=== PATIENT | male | born 1970 ===

== ENCOUNTER 2020-02-19 09:32 | Outpatient (REF) | payer MEDICARE, MEDICAID, SELFPAY ==
[2020-02-19 10:21] LABS: Hemoglobin 15.7 g/dl (14.0-18.0); Mean Corpuscular HGB Conc 32.7 g/dl (31.0-36.0); Mean Corpuscular Hemoglobin 30.9 pg (27.0-33.0); Mean Corpuscular Volume 94.5 fL (80-98); Mean Platelet Volume 9.4 fL (9.4-12.4); Platelet Count 285 X10*3/uL (160-400); Red Blood Count 5.08 X10*6/uL (4.60-5.80); Red Cell Distribution Width 12.6 % (11.0-16.0); White Blood Count 7.7 X10*3/uL (4.8-10.8)
[2020-02-19 10:56] LABS: Alanine Aminotransferase 21 U/L (0-40); Albumin Level 4.5 g/dL (3.5-5.0); Alkaline Phosphatase 62 U/L (39-117); Anion Gap 12 (12-20); Aspartate Amino Transferase 16 U/L (5-37); Bilirubin Direct 0.2 mg/dL (0.0-0.5); Bilirubin Total 0.4 mg/dL (0.0-1.0); Blood Urea Nitrogen 13 mg/dL (9-16); Calcium 8.5 mg/dL (8.4-10.2); Carbon Dioxide 26 mmol/L (22-29); Chloride 105 mmol/L (96-108); Cholesterol 174 mg/dL; Estimated Glomerular Filt Rate > 60; Glucose Random 107 mg/dL (60-115); HDL Cholesterol 39 mg/dL; LDL Cholesterol Calculated 118 mg/dl; Potassium 4.4 mmol/l (3.3-5.1); Sodium 139 mmol/L (135-145); Total Protein 7.4 g/dL (6.5-8.0); Triglycerides 87 mg/dL
[2020-02-19 11:02] LABS: Thyroid Stimulating Hormone 1.52 mIU/mL (0.32-4.0)
== END 2020-02-19 09:33 | disposition home or self-care (01) ==
LOC: HO.LAB 09:32
PROVIDERS: PCP Internal Medicine; Visit Provider Internal Medicine
DX: F32.9 Major depressive disorder, single episode, unspecified (principal)
CPT/HCPCS: 36415; 80048; 80061; 80076; 84443; 85027

== ENCOUNTER 2020-06-12 09:09 | Outpatient (REF) | payer MEDICARE, SELFPAY ==
[2020-06-12 10:04] LABS: Hematocrit 44.9 % (42-52); Hemoglobin 14.9 g/dl (14.0-18.0); Mean Corpuscular HGB Conc 33.2 g/dl (31.0-36.0); Mean Corpuscular Hemoglobin 30.7 pg (27.0-33.0); Mean Corpuscular Volume 92.6 fL (80-98); Mean Platelet Volume 9.6 fL (9.4-12.4); Platelet Count 249 X10*3/uL (160-400); Red Blood Count 4.85 X10*6/uL (4.60-5.80); White Blood Count 7.8 X10*3/uL (4.8-10.8)
[2020-06-12 10:06] LABS: Glucose Urine UA NEG (NEG); Leukocyte Esterase Urine NEG (NEG); Nitrite Urine NEG (NEG); Specific Gravity - Urine >= 1.030 (1.005-1.025); Urine Blood NEG (NEG); Urine Ketones NEG (NEG); Urine Protein NEG (NEG-TRACE)
[2020-06-12 10:08] LABS: Appearance Urine CLEAR; Color Urine YELLOW
[2020-06-12 10:19] LABS: Estimated Average Glucose 103 mg/dL; Hemoglobin A1c % 5.2 %
[2020-06-12 10:53] LABS: Prostate Specific Antigen Scr 2.38 ng/mL (<0.05-4.0)
[2020-06-12 10:54] LABS: Alanine Aminotransferase 24 U/L (0-40); Albumin Level 4.4 g/dL (3.5-5.0); Alkaline Phosphatase 68 U/L (39-117); Anion Gap 13 (12-20); Aspartate Amino Transferase 17 U/L (5-37); Bilirubin Direct 0.3 mg/dL (0.0-0.5); Blood Urea Nitrogen 16 mg/dL (9-16); Calcium 8.9 mg/dL (8.4-10.2); Carbon Dioxide 26 mmol/L (22-29); Chloride 105 mmol/L (96-108); Cholesterol 180 mg/dL; Estimated Glomerular Filt Rate > 60; Glucose Random 100 mg/dL (60-115); HDL Cholesterol 35 mg/dL; LDL Cholesterol Calculated 127 mg/dl; Potassium 3.9 mmol/L (3.3-5.1); Sodium 140 mmol/L (135-145); Total Protein 7.2 g/dL (6.5-8.0); Triglycerides 94 mg/dL
[2020-06-18 14:27] LABS: Vitamin D 25-OH, D2 <4 ng/mL; Vitamin D 25-OH, D3 26 ng/mL; Vitamin D 25-OH, Total 26 ng/mL (30-100)
== END 2020-06-12 09:10 | disposition home or self-care (01) ==
LOC: HO.LAB 09:09
PROVIDERS: PCP Internal Medicine; Visit Provider Internal Medicine
DX: R35.8 Other polyuria (principal); Z12.5 Encounter for screening for malignant neoplasm of prostate
CPT/HCPCS: 36415; 80048; 80061; 80076; 81003; 82306; 83036; 84153; 85027

== ENCOUNTER → 2021-01-07 10:15 | Outpatient (BNVA) | payer OTHER, SELFPAY | PROVIDERS: Visit Provider Urology | DX: R39.15 Urgency of urination (principal); R35.1 Nocturia; N32.0 Bladder-neck obstruction | CPT/HCPCS: 99202 ==

== ENCOUNTER → 2021-03-03 12:30 | Outpatient (BNVA) | payer OTHER, SELFPAY | PROVIDERS: Visit Provider Urology | DX: N32.0 Bladder-neck obstruction (principal); R39.15 Urgency of urination; R35.1 Nocturia | CPT/HCPCS: 52000; Q3014 ==

== ENCOUNTER 2021-06-17 08:47 | Outpatient (REF) | payer OTHER, SELFPAY ==
[2021-06-17 09:26] LABS: Hematocrit 43.6 % (42.0-52.0); Hemoglobin 14.5 g/dl (14.0-18.0); Mean Corpuscular HGB Conc 33.3 g/dl (31.0-36.0); Mean Corpuscular Hemoglobin 30.7 pg (27.0-33.0); Mean Corpuscular Volume 92.2 fL (80.0-98.0); Mean Platelet Volume 9.4 fL (9.4-12.4); Platelet Count 243 X10*3/uL (160-400); Red Blood Count 4.73 X10*6/uL (4.60-5.80); Red Cell Distribution Width 13.1 % (11.0-16.0); White Blood Count 7.4 X10*3/uL (4.8-10.8)
[2021-06-17 10:19] LABS: Alanine Aminotransferase 24 U/L (0-40); Albumin Level 4.4 g/dL (3.5-5.0); Alkaline Phosphatase 60 U/L (39-117); Anion Gap 12 (12-20); Aspartate Amino Transferase 18 U/L (5-37); Bilirubin Direct 0.4 mg/dL (0.0-0.5); Bilirubin Total 1.3 mg/dL (0.0-1.0); Blood Urea Nitrogen 14 mg/dL (9-16); Calcium 9.6 mg/dL (8.4-10.2); Carbon Dioxide 26 mmol/L (22-29); Chloride 105 mmol/L (96-108); Cholesterol 193 mg/dL; Estimated Glomerular Filt Rate > 60; Glucose Random 110 mg/dL (60-115); HDL Cholesterol 38 mg/dL; LDL Cholesterol Calculated 130 mg/dl; Potassium 4.2 mmol/L (3.3-5.1); Sodium 139 mmol/L (135-145); Total Protein 7.2 g/dL (6.5-8.0); Triglycerides 127 mg/dL
[2021-06-17 10:43] LABS: Thyroid Stimulating Hormone 2.04 uIU/mL (0.32-4.0)
== END 2021-06-17 08:48 | disposition home or self-care (01) ==
LOC: HO.LAB 08:47
PROVIDERS: PCP Internal Medicine; Visit Provider Internal Medicine
DX: M19.90 Unspecified osteoarthritis, unspecified site (principal); N32.0 Bladder-neck obstruction
CPT/HCPCS: 36415; 80048; 80061; 80076; 84443; 85027

== ENCOUNTER → 2021-07-02 12:44 | Outpatient (BNVA) | payer OTHER, SELFPAY | PROVIDERS: Visit Provider Urology | DX: N32.0 Bladder-neck obstruction (principal); R39.15 Urgency of urination | CPT/HCPCS: 51798; 99212 ==

== ENCOUNTER → 2021-12-22 13:38 | Outpatient (BNVA) | payer OTHER, SELFPAY | PROVIDERS: PCP Internal Medicine; Visit Provider Internal Medicine | DX: Z01.818 Encounter for other preprocedural examination (principal) | CPT/HCPCS: 99202 ==

== ENCOUNTER 2021-12-23 11:05 | Outpatient (REF) | payer OTHER, SELFPAY ==
[2021-12-23 11:51] LABS: Appearance Urine Clear; Color Urine Yellow; Glucose Urine UA Negative (Negative); Leukocyte Esterase Urine Trace (Negative); Nitrite Urine Negative (Negative); PH 5.5 (5.0-9.0); Urine Blood Negative (Negative); Urine Ketones Negative (Negative); Urine Protein Negative (Neg-Trace)
[2021-12-23 11:54] LABS: Bacteria Urine None Seen (None Seen); Squamous Epithelial Cell Urine 0-2 /HPF (0-2)
[2021-12-23 11:56] LABS: Hematocrit 42.4 % (42.0-52.0); Hemoglobin 14.3 g/dl (14.0-18.0); Mean Corpuscular HGB Conc 33.7 g/dl (31.0-36.0); Mean Corpuscular Hemoglobin 31.2 pg (27.0-33.0); Mean Corpuscular Volume 92.4 fL (80.0-98.0); Mean Platelet Volume 9.5 fL (9.4-12.4); Platelet Count 214 X10*3/uL (160-400); Red Blood Count 4.59 X10*6/uL (4.60-5.80); Red Cell Distribution Width 13.2 % (11.0-16.0); White Blood Count 6.7 X10*3/uL (4.8-10.8)
[2021-12-23 12:35] LABS: Alanine Aminotransferase 19 U/L (0-40); Albumin Level 4.2 g/dL (3.5-5.0); Alkaline Phosphatase 56 U/L (39-117); Anion Gap 14 (12-20); Aspartate Amino Transferase 15 U/L (5-37); Bilirubin Direct 0.2 mg/dL (0.0-0.5); Bilirubin Total 0.6 mg/dL (0.0-1.0); Blood Urea Nitrogen 15 mg/dL (9-16); Carbon Dioxide 24 mmol/L (22-29); Chloride 105 mmol/L (96-108); Cholesterol 182 mg/dL; Estimated Glomerular Filt Rate > 60; Glucose Random 104 mg/dL (60-115); HDL Cholesterol 39 mg/dL; LDL Cholesterol Calculated 129 mg/dl; Sodium 139 mmol/L (135-145); Total Protein 6.8 g/dL (6.5-8.0); Triglycerides 74 mg/dL
[2021-12-23 12:45] LABS: Thyroid Stimulating Hormone 1.33 uIU/mL (0.32-4.0)
== END 2021-12-23 11:06 | disposition home or self-care (01) ==
LOC: HO.LAB 11:05
PROVIDERS: PCP Internal Medicine; Visit Provider Urology
DX: R30.0 Dysuria (principal)
CPT/HCPCS: 36415; 80048; 80061; 80076; 81001; 84443; 85027

== ENCOUNTER 2021-12-27 12:02 | Outpatient (REF) | payer OTHER, SELFPAY ==
[2021-12-27 13:34] LABS: Prostate Specific Antigen 1.92 ng/mL (<0.05-4.0)
== END 2021-12-27 12:03 | disposition home or self-care (01) ==
LOC: HO.LAB 12:02
PROVIDERS: PCP Internal Medicine; Visit Provider Urology
DX: Z12.5 Encounter for screening for malignant neoplasm of prostate (principal); N32.0 Bladder-neck obstruction
CPT/HCPCS: 36415; 84153

== ENCOUNTER → 2021-12-31 12:59 | Outpatient (BNVA) | payer OTHER, SELFPAY | PROVIDERS: PCP Internal Medicine; Visit Provider Urology | DX: N40.1 Benign prostatic hyperplasia with lower urinary tract symptoms (principal); N13.8 Other obstructive and reflux uropathy; R39.15 Urgency of urination; R35.1 Nocturia; R35.0 Frequency of micturition; Z79.899 Other long term (current) drug therapy | CPT/HCPCS: Q3014 ==

== ENCOUNTER 2022-03-31 09:40 | Outpatient (REF) | payer OTHER, SELFPAY ==
[2022-03-31 12:23] LABS: Appearance Urine Clear; Color Urine Yellow; Glucose Urine UA Negative (Negative); Leukocyte Esterase Urine Negative (Negative); Nitrite Urine Negative (Negative); PH 5.5 (5.0-9.0); Urine Blood Negative (Negative); Urine Ketones Negative (Negative); Urine Protein Negative (Neg-Trace)
[2022-03-31 13:14] LABS: Prostate Specific Antigen 4.45 ng/mL (<0.05-4.0)
== END 2022-03-31 09:41 | disposition home or self-care (01) ==
LOC: HO.LAB 09:40
PROVIDERS: Urology; PCP Internal Medicine; Visit Provider Internal Medicine
DX: Z12.5 Encounter for screening for malignant neoplasm of prostate (principal); N32.0 Bladder-neck obstruction; R30.0 Dysuria
CPT/HCPCS: 36415; 81003; 84153

== ENCOUNTER 2022-05-04 09:21 | Outpatient (REF) | payer OTHER, SELFPAY ==
[2022-05-04 11:07] LABS: Hematocrit 45.8 % (42.0-52.0); Hemoglobin 15.3 g/dl (14.0-18.0); Mean Corpuscular HGB Conc 33.4 g/dl (31.0-36.0); Mean Corpuscular Hemoglobin 30.6 pg (27.0-33.0); Mean Corpuscular Volume 91.6 fL (80.0-98.0); Mean Platelet Volume 9.4 fL (9.4-12.4); Platelet Count 235 X10*3/uL (160-400); Red Cell Distribution Width 12.9 % (11.0-16.0); White Blood Count 7.8 X10*3/uL (4.8-10.8)
[2022-05-04 11:57] LABS: Alanine Aminotransferase 19 U/L (0-40); Albumin Level 4.3 g/dL (3.5-5.0); Alkaline Phosphatase 59 U/L (39-117); Anion Gap 10 (12-20); Aspartate Amino Transferase 15 U/L (5-37); Bilirubin Direct 0.2 mg/dL (0.0-0.5); Bilirubin Total 0.9 mg/dL (0.0-1.0); Blood Urea Nitrogen 16 mg/dL (9-16); Calcium 9.2 mg/dL (8.4-10.2); Carbon Dioxide 26 mmol/L (22-29); Chloride 106 mmol/L (96-108); Cholesterol 184 mg/dL; Estimated Glomerular Filt Rate > 60; Glucose Random 95 mg/dL (60-115); HDL Cholesterol 34 mg/dL; LDL Cholesterol Calculated 122 mg/dl; Potassium 3.9 mmol/L (3.3-5.1); Sodium 138 mmol/L (135-145); Total Protein 6.9 g/dL (6.5-8.0); Triglycerides 144 mg/dL
== END 2022-05-04 09:22 | disposition home or self-care (01) ==
LOC: HO.LAB 09:21
PROVIDERS: PCP Internal Medicine; Visit Provider Internal Medicine
DX: M19.90 Unspecified osteoarthritis, unspecified site (principal); F32.4 Major depressive disorder, single episode, in partial remission
CPT/HCPCS: 36415; 80048; 80061; 80076; 84443; 85027

== ENCOUNTER 2022-06-02 08:52 | Day surgery (SDC) | payer OTHER, SELFPAY ==
[2022-05-30 10:08] VITALS: BMI 28.3
--- NOTE | 2022-06-02 07:50 | PC.NURSE ---
pt called and cancelled
[2022-06-02 08:57] VITALS: BP 110/62; PULSE 94; RESP 19; TEMP 37; O2SAT 98
--- NOTE | 2022-06-02 09:04 | PC.NURSE ---
no meds taken today
[2022-06-02] MEDS: Lactated Ringers 1,000 ML 50 ML IVCONT (09:13)
--- NOTE | 2022-06-02 09:14 | MHC.SHP ---
Pre-Procedural Eval Section A Date of Service: 06/02/22 Section B Chief Complaint: screening Details of Present Illness: PMH Generalized anxiety disorder GERD (gastroesophageal reflux disease) Insomnia Tobacco use disorder Surgical History History of appendectomy History of cholecystectomy Relevant Family History (Specify if Yes): No Relevant Social History: None Present Medications: see Short Stay Collaborative assessment Medical History: Significant History (As above) History of Previous Operations: Relevant previous surgery/procedure and date(s) (As above) Allergies: Allergies Allergy/AdvReac Type Severity Reaction Status Date / Time aspirin [ASPIRIN] Allergy Intermediate Facial Verified 05/30/22 10:05 Swelling/Hives/flushing Penicillins [PENICILLINS] Allergy Intermediate syncope Verified 05/30/22 10:05 Review of Systems Review of Systems Comment: 10 point ROS negative Exam Exam Comment: Gen appear: No acute distress HEENT: no icterus Chest: No overt resp distress Abd: soft, nontender, nondistended Psych: Stable affect, answering questions appropriately Neuro: A/Ox3 noted to move all extremities spontaneously Ext: no peripheral edema Plan Diagnosis/Plan: Unchanged I have reviewed the history and physical and performed a pertinent physical examination on my patient. No changes have occurred unless specified. Time Spent With Patient Time: Total time managing care of this patient today ____ minutes.
--- NOTE | 2022-06-02 10:04 | HO.ANESPROP2 ---
HPI - Anesthesia Eval Consult details Narrative: 52 yr old for screening colon PMFSH Active Problems Active Problems: All Active Problems (Updated 06/02/22 @ 07:48 by Ivonne Herrmann, RN) Annual physical exam (Acute) Bladder outlet obstruction (Acute) Nocturia more than twice per night (Acute) Urinary urgency (Acute) Trichomoniasis, urogenital (Acute) Flu vaccine need (Acute) Dysuria (Acute) Osteoarthritis (Acute) Major depression in partial remission (Acute) Tobacco use disorder (Acute) GERD (gastroesophageal reflux disease) (Acute) Generalized anxiety disorder (Acute) Past Medical History Medical History (Updated 06/02/22 @ 07:48 by Ivonne Herrmann, RN) Abdominal aortic aneurysm (AAA) BPH (benign prostatic hyperplasia) CAD (coronary artery disease) Cough Dyspnea Edema Erectile dysfunction Former cigarette smoker Generalized anxiety disorder GERD (gastroesophageal reflux disease) Hemorrhoid HTN (hypertension) Hx of vertigo Hyperlipidemia Insomnia Myocardial infarct, old Pulmonary nodule Tobacco use disorder Family History Family History Mother Cancer Father Prostate cancer Heart defect Other Mental health disorder Family history of problems with anesthesia: No Surgical History Surgical History (Updated 05/30/22 @ 10:07 by Camille Araujo RN) History of appendectomy History of cholecystectomy History of Problems with Anesthesia: No Social History Social History Housing: Apartment Alcohol intake: current Alcohol intake frequency: does not drink Patient Tobacco Use Status: Former Tobacco user Quit Date: 2000 Tobacco use type: Cigarette e-Cigarette/Vaping Use: Never Used Second Hand Smoke Exposure: No Are you DNR?: No Advance Directives: No Advance Directives Information Provided: Yes Recently lost weight without trying: No Nutrition Risks: No Nutritional Risk service: No Current occupational status: disabled Cognitive needs: No Hearing needs: No Vision needs: No Meds Allergies Allergy/AdvReac Type Severity Reaction Status Date / Time aspirin [ASPIRIN] Allergy Intermediate Facial Verified 05/30/22 10:05 Swelling/Hives/flushing Penicillins [PENICILLINS] Allergy Intermediate syncope Verified 05/30/22 10:05 Active Medications: Current Medications Lactated Ringer's (Lr) 1,000 mls @ 50 mls/hr IVCONT .Q20H CATHERINE Last Admin: 06/02/22 09:13 Dose: 50 mls/hr Home Medications Medication Instructions Recorded Confirmed Last Taken Type omeprazole 20 mg capsule,delayed 20 mg PO BID 03/31/20 05/30/22 Unknown History release mirtazapine 15 mg tablet 15 mg PO BEDTIME 01/07/21 05/30/22 Unknown History doxepin 25 mg capsule 25 - 50 mg PO BEDTIME 03/03/21 05/30/22 Unknown History hydroxyzine HCl 50 mg tablet 50 mg PO TID 03/03/21 05/30/22 Unknown History albuterol sulfate 90 mcg/actuation 2 puff inhalation Q4H PRN 05/30/22 05/30/22 Unknown History aerosol inhaler (Ventolin HFA) Shortness Of Breath Exam Exam Date and Time: June 02, 2022 1004 Height,Weight and Vital Signs: Height 5 ft 5 in Weight 77.111 kg Last Vital Signs Temp 98.6 F 06/02/22 08:57 Pulse 94 06/02/22 08:57 Resp 19 06/02/22 08:57 BP 110/62 06/02/22 08:57 Pulse Ox 98 06/02/22 08:57 O2 Del Method 06/02/22 08:57 Airway Mallampati Class: II TM Dist: >3cm Neck ROM: Full Heart: rrr Lungs: cta Assessment and Plan Assessment Anesthesia Assessment: Anesthesia Plan Discussed and Chart Reviewed Final Anesthetic Review Family History of Problems with Anesthesia: No History of Problems with Anesthesia: No NPO: Yes ASA Class: II Final Preanesthetic Review: No Changes in Pt Med Stat, Meds/Allgs Chart Reviewed, Consent Obtained/Reviewed and Anes Risks/Benef Reviewed Patient Risk: Low Procedure Risk: Low Anesthetic Plan Anesthetic Plan: MAC: Disposition: Standard PACU
--- NOTE | 2022-06-02 10:45 | P.OP_ITS ---
Operative Note Operative Note Date of Service: 06/02/22 Narrative: Procedure: Colonoscopy Indication: Screening Endoscopist: Roxane Talley MD Anesthesia Provider: Dr Jesica Eller Anesthesia type: MAC Instrument: Olympus [id number]-[id number] Consent: Indication, risks vs benefits, and alternatives were discussed with the patient who gave written informed consent to proceed. EKG, pulse, pulse oximetry and blood pressure were monitored throughout the procedure. Please see anesthesia flowsheet. Procedure: The patient was brought to the procedure room and placed in the left lateral decubitus position. IV medications were administered by the anesthesia provider in attendance. A digital rectal exam was performed which was normal. The colonoscope was then inserted through the anus and advanced through the colon to the cecum at 75 cm,and terminal ileum. Mucosa was carefully examined under high definition white light as the instrument was slowly withdrawn in a retrograde panoramic fashion. Retroflexion was performed in rectum. The procedure was not difficult. There were no immediate obvious complications. The quality of the prep was BBPS: 2+2+2 = adequate Withdrawal time 15 minutes. Limitations: No limitations. Findings: Mucosa: Normal to cecum and terminal ileum. Protruding lesions: * 1 semi-pedunculated polyp of size 10 mm in ascending colon. Hot snare polypectomy was performed. The polyp was completely removed and retrieved. Mild oozing was noted at the polypectomy site which was successfully treated with soft coag thermal therapy using the tip of the hot snare. * Medium internal hemorrhoids without stigmata of recent bleeding. Impression: 1. Normal colon and terminal ileum mucosa 2. Total of 1 polyp removed from cecum. 3. Internal hemorrhoids Recommendations: - Follow path results. - Repeat colonoscopy in 3 years if polyp is an adenoma due to size. Findings were reviewed with the patient.
[2022-06-02 10:49] VITALS: BP 80/44; PULSE 52; RESP 16; TEMP 36.2; O2SAT 97
[2022-06-02 10:53] VITALS: BP 85/49; PULSE 50
--- NOTE | 2022-06-02 10:56 | HO.ANESPROP2 ---
HPI - Anesthesia Eval Consult details Narrative: for screening [facility] Active Problems Active Problems: All Active Problems (Updated 06/02/22 @ 07:48 by Ivonne Herrmann, RN) Annual physical exam (Acute) Bladder outlet obstruction (Acute) Nocturia more than twice per night (Acute) Urinary urgency (Acute) Trichomoniasis, urogenital (Acute) Flu vaccine need (Acute) Dysuria (Acute) Osteoarthritis (Acute) Major depression in partial remission (Acute) Tobacco use disorder (Acute) GERD (gastroesophageal reflux disease) (Acute) Generalized anxiety disorder (Acute) Past Medical History Medical History (Updated 06/02/22 @ 07:48 by Ivonne Herrmann, RN) Abdominal aortic aneurysm (AAA) BPH (benign prostatic hyperplasia) CAD (coronary artery disease) Cough Dyspnea Edema Erectile dysfunction Former cigarette smoker Generalized anxiety disorder GERD (gastroesophageal reflux disease) Hemorrhoid HTN (hypertension) Hx of vertigo Hyperlipidemia Insomnia Myocardial infarct, old Pulmonary nodule Tobacco use disorder Family History Family History Mother Cancer Father Prostate cancer Heart defect Other Mental health disorder Family history of problems with anesthesia: No Surgical History Surgical History (Updated 05/30/22 @ 10:07 by Camille Araujo RN) History of appendectomy History of cholecystectomy History of Problems with Anesthesia: No Social History Social History Housing: Apartment Alcohol intake: current Alcohol intake frequency: does not drink Patient Tobacco Use Status: Former Tobacco user Quit Date: 2000 Tobacco use type: Cigarette e-Cigarette/Vaping Use: Never Used Second Hand Smoke Exposure: No Are you DNR?: No Advance Directives: No Advance Directives Information Provided: Yes Recently lost weight without trying: No Nutrition Risks: No Nutritional Risk service: No Current occupational status: disabled Cognitive needs: No Hearing needs: No Vision needs: No Meds Allergies Allergy/AdvReac Type Severity Reaction Status Date / Time aspirin [ASPIRIN] Allergy Intermediate Facial Verified 05/30/22 10:05 Swelling/Hives/flushing Penicillins [PENICILLINS] Allergy Intermediate syncope Verified 05/30/22 10:05 Active Medications: Current Medications Lactated Ringer's (Lr) 1,000 mls @ 50 mls/hr IVCONT .Q20H CATHERINE Last Admin: 06/02/22 09:13 Dose: 50 mls/hr Home Medications Medication Instructions Recorded Confirmed Last Taken Type omeprazole 20 mg capsule,delayed 20 mg PO BID 03/31/20 05/30/22 Unknown History release mirtazapine 15 mg tablet 15 mg PO BEDTIME 01/07/21 05/30/22 Unknown History doxepin 25 mg capsule 25 - 50 mg PO BEDTIME 03/03/21 05/30/22 Unknown History hydroxyzine HCl 50 mg tablet 50 mg PO TID 03/03/21 05/30/22 Unknown History albuterol sulfate 90 mcg/actuation 2 puff inhalation Q4H PRN 05/30/22 05/30/22 Unknown History aerosol inhaler (Ventolin HFA) Shortness Of Breath Exam Exam Date and Time: June 02, 2022 1056 Height,Weight and Vital Signs: Height 5 ft 5 in Weight 77.111 kg Last Vital Signs Temp 97.2 F 06/02/22 10:49 Pulse 50 06/02/22 10:53 Resp 16 06/02/22 10:49 BP 85/49 L 06/02/22 10:53 Pulse Ox 97 06/02/22 10:49 O2 Del Method 06/02/22 10:49 Airway Mallampati Class: II TM Dist: >3cm Neck ROM: Full Heart: rr Lungs: cta Assessment and Plan Final Anesthetic Review Family History of Problems with Anesthesia: No History of Problems with Anesthesia: No NPO: Yes ASA Class: II Final Preanesthetic Review: No Changes in Pt Med Stat, Meds/Allgs Chart Reviewed, Consent Obtained/Reviewed and Anes Risks/Benef Reviewed Patient Risk: Low Procedure Risk: Low Anesthetic Plan Anesthetic Plan: MAC: Disposition: Standard PACU
[2022-06-02 10:58] VITALS: BP 88/50; PULSE 45
[2022-06-02 11:04] VITALS: BP 99/68; PULSE 55; RESP 16; O2SAT 97
[2022-06-02 11:19] VITALS: BP 103/65; PULSE 52; RESP 18; TEMP 36.8; O2SAT 98
== END 2022-06-02 12:24 | disposition home or self-care (01) ==
PROVIDERS: PCP Internal Medicine; Visit Provider Internal Medicine
PROC: 0DJD8ZZ Inspection of Lower Intestinal Tract, Via Natural or Artificial Opening Endoscopic (ICD-10-PCS; CPT 45378; principal; 2022-06-02 10:20)
DX: Z12.11 Encounter for screening for malignant neoplasm of colon (principal); D12.2 Benign neoplasm of ascending colon; K64.8 Other hemorrhoids; K21.9 Gastro-esophageal reflux disease without esophagitis; G47.00 Insomnia, unspecified; F41.1 Generalized anxiety disorder; Z79.899 Other long term (current) drug therapy; Z88.0 Allergy status to penicillin; Z88.8 Allergy status to other drugs, medicaments and biological substances; Z87.891 Personal history of nicotine dependence; Z90.49 Acquired absence of other specified parts of digestive tract
CPT/HCPCS: 45385; 88305

== ENCOUNTER → 2022-06-15 10:39 | Outpatient (BNVA) | payer OTHER, SELFPAY | PROVIDERS: PCP Internal Medicine; Visit Provider Internal Medicine | DX: K63.5 Polyp of colon (principal); K64.9 Unspecified hemorrhoids | CPT/HCPCS: 99212 ==

== ENCOUNTER 2022-10-05 09:18 | Outpatient (REF) | payer OTHER, SELFPAY ==
[2022-10-05 11:35] LABS: Rheumatoid Factor < 13.0 IU/mL (<15.0)
[2022-10-07 13:54] LABS: Anti Nuclear Antibody Screen NEGATIVE (NEGATIVE)
== END 2022-10-05 09:19 | disposition home or self-care (01) ==
LOC: HO.LAB 09:18
PROVIDERS: PCP Nurse Practitioner Family; Visit Provider Nurse Practitioner Family
DX: M25.50 Pain in unspecified joint (principal)
CPT/HCPCS: 36415; 86038; 86431

== ENCOUNTER 2022-11-22 14:11 | Outpatient (AMB) | payer OTHER, SELFPAY ==
--- NOTE | 2022-11-22 14:18 | A.OFFVIS_ITS ---
Intake Vital Signs 11/22/22 14:19 Height 5 ft 5 in Weight 153 lb 3.54 oz BMI 25.5 BP 102/60 Blood Pressure Location Rt brachial Position Sitting Pulse 92 Pulse Source Pulse Oximeter Temp 98.1 F Temp Source Skin Pulse Oximetry (%) 96 Intake Visit Reasons: Joint Pain Intake Note: * New pt presents today for joint pain consult. * C/o pain in multiple areas. Enrollment Coordinator Required: No Accompanied by: Self / Same As Patient Allergies aspirin [ASPIRIN] Allergy (Intermediate, Verified 11/22/22 14:21) Facial Swelling/Hives/flushing Penicillins [PENICILLINS] Allergy (Intermediate, Verified 11/22/22 14:21) syncope Medication List - Last Reconciled 11/22/22 by Monica Merritt MD albuterol sulfate 90 mcg/actuation (Ventolin HFA) 2 puffs inhalation Q4H PRN cane As directed cholecalciferol (vitamin D3) (Vitamin D3) 25 mcg PO DAILY doxepin 25 - 50 mg PO BEDTIME escitalopram oxalate 20 mg PO DAILY finasteride 5 mg PO DAILY 90 days hydroxyzine HCl 50 mg PO TID lidocaine HCl-hydrocortison ac 3-0.5 % 1 appl [place] BEDTIME mirtazapine 15 mg PO BEDTIME omeprazole 20 mg PO BID Shower Chair As directed terazosin 5 mg PO BEDTIME 90 days tramadol 50 mg PO DAILY PRN HPI HPI Comments History of Present Illness Details If this is a 52-year-old male who presents for evaluation of diffuse pain. Patient stated that he has had back pain for more than 20 years during a work injury when he fell from height. For the last 2 3 years he has been getting intermittent abrupt pain in his wrists, shoulders, elbows. Denies any swollen joints. Patient states that he has difficulty falling asleep and takes a sleeping pill. Mentions that he has a cousin with severe arthritis. Has a niece with SLE. [facility] Medical History Abdominal aortic aneurysm (AAA) BPH (benign prostatic hyperplasia) CAD (coronary artery disease) Cough Dyspnea Edema Erectile dysfunction Former cigarette smoker Generalized anxiety disorder GERD (gastroesophageal reflux disease) Hemorrhoid HTN (hypertension) Hx of vertigo Hyperlipidemia Insomnia Myocardial infarct, old Pulmonary nodule Tobacco use disorder Surgical History History of appendectomy History of cholecystectomy Hx of colonoscopy Family History Mother Cancer Father Prostate cancer Heart defect Other Mental health disorder Social History Household Members: None Housing: Apartment Alcohol intake: current Alcohol intake frequency: does not drink Patient Tobacco Use Status: Former Tobacco user Quit Date: 2011 Tobacco use type: Cigarette e-Cigarette/Vaping Use: Never Used Second Hand Smoke Exposure: No service: No Current occupational status: disabled Cognitive needs: No Hearing needs: No Vision needs: No Review of Systems Const Reports fatigue GI Reports heartburn Reports difficulty urinating and Reports nocturia Musc Reports arthralgias Psych Reports anxiety and Reports depression Endo Reports fatigue Physical Exam Vital Signs: Last Vital Signs Temp 98.1 F 11/22/22 14:19 Pulse 92 11/22/22 14:19 BP 102/60 11/22/22 14:19 Pulse Ox 96 11/22/22 14:19 BMI result Body Mass Index 25.5 Const General: cooperative, healthy appearing and comfortable Nutritional Appearance: average body habitus Orientation/consciousness: patient oriented x3 Limitations: no limitations HEENT Head: Yes normocephalic and Yes atraumatic Mouth: moist mucous membranes Resp Effort & Inspection: normal respiratory effort and able to speak in complete sentences Auscultation: clear to auscultation bilaterally Cardio Rate: regular rate Rhythm: regular rhythm Neuro General: patient oriented x3 Extrem Other: Mild osteoarthritic changes of both hands with no active synovitis Multiple fibromyalgia tender points Assessment & Plan Assessment & Plan (1) Polyarthralgia: Code(s): M25.50 - Pain in unspecified joint Plan: This is a 60-year-old male who presents for evaluation of multiple joint pain. Recent labs showed negative TOM/RF. Will order anti CCP antibodies and check bilateral hand x-rays for full evaluation. Patient's pains however are likely a combination of fibromyalgia and osteoarthritis Orders: Orders Cyclic Citrullinated Peptide Today M25.50 - Pain in unspecified joint Complete Blood Count Auto Diff Today M25.50 - Pain in unspecified joint Comprehensive Met. Panel Today M25.50 - Pain in unspecified joint C Reactive Protein Today M25.50 - Pain in unspecified joint Erythrocyte Sedimentation Rate Today M25.50 - Pain in unspecified joint XR hand wrist LT Today M25.50 - Pain in unspecified joint XR hand wrist RT Today M25.50 - Pain in unspecified joint Medications: Changed From tramadol 50 mg PO ONCE 14 tabs 0RF To tramadol 50 mg PO DAILY PRN Coding Level of Care Code Est Pt Level 3 (30984) Diagnoses Polyarthralgia M25.50
[2022-11-22 14:19] VITALS: BP 102/60; PULSE 92; TEMP 36.7; O2SAT 96; BMI 25.5
== END 2022-11-22 14:56 | disposition home or self-care (01) ==
PROVIDERS: PCP Nurse Practitioner Family; Visit Provider Student in an Organized Health Care Education/Training Program
DX: M25.50 Pain in unspecified joint (principal)
CPT/HCPCS: 99213

== ENCOUNTER → 2022-11-22 14:11 | Outpatient (BNVA) | payer OTHER, SELFPAY | PROVIDERS: PCP Nurse Practitioner Family; Visit Provider Student in an Organized Health Care Education/Training Program | DX: M25.50 Pain in unspecified joint (principal) | CPT/HCPCS: 99212 ==

== ENCOUNTER 2023-01-18 08:38 | Outpatient (REF) | payer OTHER, SELFPAY ==
[2023-01-18 10:20] LABS: Prostate Specific Antigen Scr 1.05 ng/mL (<0.05-4.0)
== END 2023-01-18 08:39 | disposition home or self-care (01) ==
LOC: HO.LAB 08:38
PROVIDERS: PCP Internal Medicine; Visit Provider Urology
DX: N32.0 Bladder-neck obstruction (principal); I71.40 Abdominal aortic aneurysm, without rupture, unspecified; M19.90 Unspecified osteoarthritis, unspecified site; Z12.5 Encounter for screening for malignant neoplasm of prostate
CPT/HCPCS: 36415; 84153

== ENCOUNTER 2023-01-24 11:04 | Outpatient (AMB) | payer OTHER, SELFPAY ==
--- NOTE | 2023-01-24 11:07 | MHC.OFFVIS ---
Intake Intake Visit Reasons: 6M PSA(set) Intake Note: Patient presents today for a follow-up on PSA: Meds- None Allergies to Antibiotic- No Known Allergies Blood Thinner- None PVR- 13 mL Food And Nutrition Services Supervisor Required: No Accompanied by: JAMES Allergies aspirin [ASPIRIN] Allergy (Intermediate, Verified 01/24/23 11:12) Facial Swelling/Hives/flushing Penicillins [PENICILLINS] Allergy (Intermediate, Verified 01/24/23 11:12) syncope Medication List - Last Reconciled 01/24/23 by Francisco Granger MD albuterol sulfate 90 mcg/actuation (Ventolin HFA) 2 puffs PO Q4H cane As directed cholecalciferol (vitamin D3) (Vitamin D3) 25 mcg PO DAILY doxepin 25 - 50 mg PO BEDTIME escitalopram oxalate 20 mg PO DAILY finasteride 5 mg PO DAILY 90 days hydroxyzine HCl 50 mg PO TID lidocaine HCl-hydrocortison ac 3-0.5 % 1 appl [place] BEDTIME mirtazapine 15 mg PO BEDTIME omeprazole 20 mg PO BID Shower Chair As directed terazosin 5 mg PO BEDTIME 90 days tramadol 50 mg PO DAILY PRN HPI HPI Comments History of Present Illness Details Rigoberto is a pleasant male. He is a patient of Dr. Al. He is seen for the following urologic conditions - lower urinary tract symptoms PSA March elevated PSA January Continue with current medications Significant improvement in urinary performance Six month follow-up Lower urinary tract symptoms Progressive and longstanding Urinary urgency and frequency with occasional accident, Weak stream, Hesitancy, Nocturia times 3-4 Current medication finasteride and terazosin 5 mg Family history prostate issues Prior medication tamsulosin Cystoscopy 03/07 wide prostate Does have dietary triggers such as coffee and spicy food PSA 06/07 2.4, 01/06 1.9, 04/07 4.5, 02/06 1.1 SABINE 3+ prostate normal Therapeutic plan -continue current meds [facility] Medical History Abdominal aortic aneurysm (AAA) BPH (benign prostatic hyperplasia) CAD (coronary artery disease) Cough Dyspnea Edema Erectile dysfunction Former cigarette smoker Generalized anxiety disorder GERD (gastroesophageal reflux disease) Hemorrhoid HTN (hypertension) Hx of vertigo Hyperlipidemia Insomnia Myocardial infarct, old Pulmonary nodule Tobacco use disorder Surgical History History of appendectomy History of cholecystectomy Hx of colonoscopy Family History Mother Cancer Father Prostate cancer Heart defect Other Mental health disorder Social History Household Members: None Housing: Apartment Alcohol intake: current Alcohol intake frequency: does not drink Patient Tobacco Use Status: Former Tobacco user Quit Date: 2011 Tobacco use type: Cigarette e-Cigarette/Vaping Use: Never Used Second Hand Smoke Exposure: No service: No Current occupational status: disabled Cognitive needs: No Hearing needs: No Vision needs: No Review of Systems Const Denies chills and Denies fever(s) Card Reports no additional complaints and Denies syncope Resp Denies cough GI Denies abdominal pain and Denies heartburn Reports as per HPI and Denies change in libido Neuro Denies syncope Psych Denies change in libido Endo Denies change in libido Physical Exam Const General: cooperative, healthy appearing, comfortable and no acute distress Orientation/consciousness: patient oriented x3 HEENT Face and sinus: Yes normal facial exam Mouth: moist mucous membranes Neck Neck: Yes normal visual inspection, Yes full ROM and Yes trachea midline Chest Chest palpation & inspection: normal inspection of the chest Resp Effort & Inspection: normal respiratory effort, able to speak in complete sentences and no respiratory distress GI Inspection: Yes normal to inspection Back/Spine/Pelvis Cervical Spine: normal cervical lordosis Thoracic/Lumbar Spine: thoracic and lumbar spine normal to inspection Skin General skin exam: no rashes or lesions noted Neuro General: patient oriented x3, gait normal, tone normal and moves all extremities Extrem General: Yes normal to inspection and Yes capillary refill normal Office Procedures Post Void Residual Post Residual Void Post Void Residual (PVR): 13 47157-Iptl Void Residual by ultrasound Results AMB Urinalysis, Automated UA Leukoctes 0 Leatha/uL Last Edit by MONY Sampson on 01/24/23 11:29 UA Nitrite Negative Last Edit by MONY Sampson on 01/24/23 11:29 UA Urobilinogen 0.2 mg/dL Last Edit by MONY Sampson on 01/24/23 11:29 UA Protein 15 mg/dL Last Edit by MONY Sampson on 01/24/23 11:29 UA pH 5.0 Last Edit by MONY Sampson on 01/24/23 11:29 UA Blood 0 Paul/uL Last Edit by MONY Sampson on 01/24/23 11:29 UA Specific [place] 1.025 Last Edit by MONY Sampson on 01/24/23 11:29 UA Ketone Negative Last Edit by MONY Sampson on 01/24/23 11:29 UA Bilirubin 0 mg/dL Last Edit by MONY Sampson on 01/24/23 11:29 UA Glucose 0 mg/dL Last Edit by MONY Sampson on 01/24/23 11:29 Results Reviewed Results Reviewed: Laboratory Last Values Urine pH (Auto) 5.0 01/24/23 11:16 Specific [place] (Auto) 1.025 01/24/23 11:16 Urine Protein (Auto) 15 mg/dL 01/24/23 11:16 Glucose (UA)(Auto) 0 mg/dL 01/24/23 11:16 Urine Ketones (Auto) Negative 01/24/23 11:16 Urine Blood (Auto) 0 Paul/uL 01/24/23 11:16 Urine Nitrite (Auto) Negative 01/24/23 11:16 Urine Bilirubin (Auto) 0 mg/dL 01/24/23 11:16 Urine Urobilinogen (Auto) 0.2 mg/dL 01/24/23 11:16 Leukocyte Esterase (Auto) 0 Leatha/uL 01/24/23 11:16 Assessment & Plan Assessment & Plan (1) Elevated PSA: Code(s): R97.20 - Elevated prostate specific antigen [PSA] (2) Nocturia more than twice per night: Code(s): R35.1 - Nocturia (3) Bladder outlet obstruction: Code(s): N32.0 - Bladder-neck obstruction Plan 6 month follow-up Orders: Orders Prostate Specific Antigen Scr 01/18/23 I71.40 - Abdominal aortic aneurysm, without rupture, unspecified, M19.90 - Unspecified osteoarthritis, unspecified site, N32.0 - Bladder-neck obstruction AMB Urinalysis Automated Today Z13.9 - Encounter for screening, unspecified AMB Post Void Residual by ultrasound Today N39.8 - Other specified disorders of urinary system PSA,Total (Free>4and<10) 6 Months R97.20 - Elevated prostate specific antigen [PSA] Medications: Refilled finasteride 5 mg PO DAILY 90 days 90 tabs 3RF N32.0 - Bladder-neck obstruction terazosin 5 mg PO BEDTIME 90 days 90 caps 3RF N32.0 - Bladder-neck obstruction, N40.1 - Benign prostatic hyperplasia with lower urinary tract symptoms, R35.0 - Frequency of micturition Patient Instructions: Imaging studies, laboratory and physical exam results were discussed and reviewed in detail. No major barriers to patient understanding were identified. An opportunity to ask questions regarding the treatment plan was provided. All questions were answered. The patient expressed understanding and agreement with the above treatment plan. The patient is aware they should contact our office by phone for worsening of their current condition or the appearance of new urologic symptoms. Compliance is encouraged with any medications and followup testing that is ordered. It is a privilege to participate in the urologic care of your patient. If you have any questions or concerns regarding treatment for the above conditions, or other urologic issues, please do not hesitate to contact me. The office telephone contact is [phone]. This note is constructed using voice recognition software. While every effort has been made to ensure accuracy jeweler apprentice errors may have been included. Yours sincerely, Dr Francisco Granger MD, [facility] - Urology Providers of Expert, Compassionate Care for the Genitourinary System Coding Level of Care Code Est Pt Level 4 (52553) Diagnoses Elevated PSA R97.20 Nocturia more than twice per night R35.1 Bladder outlet obstruction N32.0 CPT Codes Post Residual Void - PVR CPT Code: 35320-Ekfc Void Residual by ultrasound ([id number])
== END 2023-01-24 11:51 | disposition home or self-care (01) ==
PROVIDERS: PCP Nurse Practitioner Family; Visit Provider Urology
DX: R97.20 Elevated prostate specific antigen [PSA] (principal); R35.1 Nocturia; N32.0 Bladder-neck obstruction; Z13.9 Encounter for screening, unspecified
CPT/HCPCS: 99213

== ENCOUNTER → 2023-01-24 11:04 | Outpatient (BNVA) | payer OTHER, SELFPAY | PROVIDERS: PCP Nurse Practitioner Family; Visit Provider Urology | DX: R97.20 Elevated prostate specific antigen [PSA] (principal); R35.1 Nocturia; N32.0 Bladder-neck obstruction; Z79.899 Other long term (current) drug therapy | CPT/HCPCS: 51798; 81003; 99212 ==

== ENCOUNTER 2023-01-26 12:42 | Outpatient (REF) | payer OTHER, SELFPAY ==
--- NOTE | ~2023-01-26 | XR_ITS ---
EXAMINATION: XR HAND/WRIST, RIGHT XR HAND/WRIST, LEFT CLINICAL INFORMATION: Pain. COMPARISON: None available. TECHNIQUE: PA, lateral, and oblique views of the each hand and wrist, together with a dedicated navicular views. FINDINGS: RIGHT HAND/WRIST: The bones and soft tissues are normal. No fracture. Alignment is anatomic. Joint spaces are maintained. No erosions or soft tissue calcifications. LEFT HAND/WRIST: The bones and soft tissues are normal. No fracture. Alignment is anatomic. Joint spaces are maintained. No erosions or soft tissue calcifications. XR/XR hand wrist RT IMPRESSION: Normal radiographs of the hands and wrists.
--- NOTE | ~2023-01-26 | XR_ITS ---
EXAMINATION: XR HAND/WRIST, RIGHT XR HAND/WRIST, LEFT CLINICAL INFORMATION: Pain. COMPARISON: None available. TECHNIQUE: PA, lateral, and oblique views of the each hand and wrist, together with a dedicated navicular views. FINDINGS: RIGHT HAND/WRIST: The bones and soft tissues are normal. No fracture. Alignment is anatomic. Joint spaces are maintained. No erosions or soft tissue calcifications. LEFT HAND/WRIST: The bones and soft tissues are normal. No fracture. Alignment is anatomic. Joint spaces are maintained. No erosions or soft tissue calcifications. XR/XR hand wrist LT IMPRESSION: Normal radiographs of the hands and wrists.
[2023-01-26 13:03] LABS: MANUAL DIFF FLAG NO
[2023-01-26 13:48] LABS: Basophils Absolute Auto 0.1 X10*3/uL (0.0-0.2); Basophils Percent Auto 1.1 % (0-2); Eosinophils Absolute Auto 0.5 X10*3/uL (0.0-0.4); Eosinophils Percent Auto 6.9 % (0-4); Hematocrit 44.2 % (42.0-52.0); Imm Gran Abs Auto 0.02 X10*3/uL (0.00-0.03); Imm Gran Pct Auto 0.3 % (0.0-0.4); Lymphocytes Absolute Auto 1.9 X10*3/uL (1.2-4.9); Lymphocytes Percent Auto 24.6 % (20-40); Mean Corpuscular HGB Conc 33.9 g/dl (31.0-36.0); Mean Corpuscular Hemoglobin 31.3 pg (27.0-33.0); Mean Corpuscular Volume 92.3 fL (80.0-98.0); Mean Platelet Volume 10.1 fL (9.4-12.4); Monocytes Absolute Auto 0.6 X10*3/uL (0.1-1.2); Monocytes Percent Auto 8.1 % (2-11); Neutrophils Absolute Auto 4.5 x10*3/uL (2.0-8.3); Platelet Count 219 X10*3/uL (160-400); Red Blood Count 4.79 X10*6/uL (4.60-5.80); Red Cell Distribution Width 13.2 % (11.0-16.0); White Blood Count 7.6 X10*3/uL (4.8-10.8)
[2023-01-26 14:18] LABS: Alanine Aminotransferase 14 U/L (0-40); Albumin Level 4.1 g/dL (3.5-5.0); Alkaline Phosphatase 57 U/L (39-117); Anion Gap 13 (12-20); Aspartate Amino Transferase 15 U/L (5-37); Bilirubin Total 0.6 mg/dL (0.0-1.0); Blood Urea Nitrogen 16 mg/dL (9-16); C Reactive Protein 0.36 mg/dL (< or = 0.50); Calcium 9.4 mg/dL (8.4-10.2); Carbon Dioxide 22 mmol/L (22-29); Chloride 106 mmol/L (96-108); Estimated Glomerular Filt Rate > 60; Glucose Random 103 mg/dL (60-115); Potassium 3.8 mmol/L (3.3-5.1); Sodium 137 mmol/L (135-145); Total Protein 7.1 g/dL (6.5-8.0)
[2023-01-26 14:26] LABS: Erythrocyte Sedimentation Rate 6 MM/HR (0-15)
[2023-01-31 15:18] LABS: Cyclic Citrullinated Peptide <16 UNITS
== END 2023-01-26 12:43 | disposition home or self-care (01) ==
LOC: HO.XRAY 12:42
PROVIDERS: PCP Internal Medicine; Visit Provider Student in an Organized Health Care Education/Training Program
DX: M25.50 Pain in unspecified joint (principal)
CPT/HCPCS: 36415; 73110; 73130; 80053; 85025; 85652; 86140; 86200

== ENCOUNTER 2023-01-27 14:38 | Outpatient (AMB) | payer OTHER, SELFPAY ==
--- NOTE | 2023-01-27 14:40 | A.OFFVIS_ITS ---
Intake Vital Signs 01/27/23 14:41 Height 5 ft 5 in Weight 151 lb 10.848 oz BMI 25.2 BP 112/64 Blood Pressure Location Rt brachial Position Sitting Pulse 95 Pulse Source Pulse Oximeter Temp 98.4 F Temp Source Skin Pulse Oximetry (%) 96 Intake Visit Reasons: OA/FMS Intake Note: Pt presents today for follow up and test results. Still continues to have bl hand pain. 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 Accompanied by: Self / Same As Patient Allergies aspirin [ASPIRIN] Allergy (Intermediate, Verified 01/27/23 14:44) Facial Swelling/Hives/flushing Penicillins [PENICILLINS] Allergy (Intermediate, Verified 01/27/23 14:44) syncope Medication List - Last Reconciled 01/27/23 by Monica Merritt MD albuterol sulfate 90 mcg/actuation (Ventolin HFA) 2 puffs PO Q4H cane As directed cholecalciferol (vitamin D3) (Vitamin D3) 25 mcg PO DAILY doxepin 25 - 50 mg PO BEDTIME escitalopram oxalate 20 mg PO DAILY finasteride 5 mg PO DAILY 90 days hydroxyzine HCl 50 mg PO TID lidocaine HCl-hydrocortison ac 3-0.5 % 1 appl HI BEDTIME mirtazapine 15 mg PO BEDTIME omeprazole 20 mg PO BID Shower Chair As directed terazosin 5 mg PO BEDTIME 90 days tramadol 50 mg PO DAILY PRN HPI HPI Comments History of Present Illness Details Patient returns for follow-up. Yesterday he did the blood work, CCP antibody test done, results pending. She also did bilateral hand x-rays, results pending. Continues to feel about the same. Continues to have diffuse pain everywhere. States that when ask to approximate his index finger with his thumb to take the x-ray pictures yesterday he started having pain. He continues to have the same pain today. Initial history: this is a 52-year-old male who presents for evaluation of diffuse pain. Patient stated that he has had back pain for more than 20 years during a work injury when he fell from height. For the last 2 3 years he has been getting intermittent abrupt pain in his wrists, shoulders, elbows. Denies any swollen joints. Patient states that he has difficulty falling asleep and takes a sleeping pill. Mentions that he has a cousin with severe arthritis. Has a niece with SLE. PFSH Medical History Hx of vertigo Edema Pulmonary nodule Cough Former cigarette smoker Hemorrhoid CAD (coronary artery disease) Erectile dysfunction BPH (benign prostatic hyperplasia) Myocardial infarct, old Hyperlipidemia HTN (hypertension) Dyspnea Abdominal aortic aneurysm (AAA) Insomnia Tobacco use disorder GERD (gastroesophageal reflux disease) Generalized anxiety disorder Surgical History Hx of colonoscopy History of cholecystectomy History of appendectomy Family History Mother Cancer Father Prostate cancer Heart defect Other Mental health disorder Social History Household Members: None Housing: Apartment Alcohol intake: current Alcohol intake frequency: does not drink Patient Tobacco Use Status: Former Tobacco user Quit Date: 2011 Tobacco use type: Cigarette e-Cigarette/Vaping Use: Never Used Second Hand Smoke Exposure: No service: No Current occupational status: disabled Cognitive needs: No Hearing needs: No Vision needs: No Review of Systems Const Reports fatigue Musc Reports arthralgias and Reports numbness Neuro Reports numbness Psych Reports anxiety and Reports depression Endo Reports fatigue Physical Exam Vital Signs: Last Vital Signs Temp 98.4 F 01/27/23 14:41 Pulse 95 01/27/23 14:41 BP 112/64 01/27/23 14:41 Pulse Ox 96 01/27/23 14:41 BMI result Body Mass Index 25.2 Const General: cooperative, healthy appearing and comfortable Nutritional Appearance: average body habitus Limitations: no limitations HEENT Head: Yes normocephalic and Yes atraumatic Resp Effort & Inspection: normal respiratory effort and able to speak in complete sentences Extrem Other: Mild osteoarthritic changes of both hands with no active synovitis Multiple fibromyalgia tender points Assessment & Plan Assessment & Plan (1) Polyarthralgia: Code(s): M25.50 - Pain in unspecified joint Plan: This is a 53-year-old male was evaluated for evaluation of diffuse pain. Upon evaluation I do not see any signs of an autoimmune rheumatic disease. Bilateral hand and wrist x-rays were done yesterday, reports still not available. I reviewed the images and I do not see any signs of an inflammatory arthropathy. Clinical picture consistent with fibromyalgia Discussed management of fibromyalgia with patient. Is a noninflammatory, non- autoimmune central afferent processing disorder leading to a diffuse pain syndrome. Patient follows up regularly with a therapist and a psychiatrist. He is on doxepin, escitalopram, and mirtazapine. Try to follow sleep hygiene practices. Discuss discussed a referral for a sleep study from his PCP. Patient walks daily 25-30 minutes. Advised patient not to stop exercising and consider adding some low- impact exercises. Follow-up as needed Plan I spent 16 minutes reviewing patient's chart, evaluating patient, counseling patient and documenting in the chart Coding Level of Care Code Est Pt Level 3 (56568) Diagnoses Polyarthralgia M25.50
[2023-01-27 14:41] VITALS: BP 112/64; PULSE 95; TEMP 36.9; O2SAT 96; BMI 25.2
== END 2023-01-27 14:58 | disposition home or self-care (01) ==
PROVIDERS: PCP Nurse Practitioner Family; Visit Provider Student in an Organized Health Care Education/Training Program
DX: M25.50 Pain in unspecified joint (principal)
CPT/HCPCS: 99213

== ENCOUNTER → 2023-01-27 14:38 | Outpatient (BNVA) | payer OTHER, SELFPAY | PROVIDERS: PCP Nurse Practitioner Family; Visit Provider Student in an Organized Health Care Education/Training Program | DX: M25.50 Pain in unspecified joint (principal) | CPT/HCPCS: 99212 ==

== ENCOUNTER 2023-07-21 09:59 | Outpatient (REF) | payer OTHER, SELFPAY ==
[2023-07-21 11:47] LABS: PSA,Total (Free>4and<10) 1.44 ng/mL (0.00-4.00)
== END 2023-07-21 10:00 | disposition home or self-care (01) ==
LOC: HO.LAB 09:59
PROVIDERS: PCP Internal Medicine; Visit Provider Urology
DX: R97.20 Elevated prostate specific antigen [PSA] (principal); Z12.5 Encounter for screening for malignant neoplasm of prostate
CPT/HCPCS: 36415; 84153

== ENCOUNTER 2023-07-26 08:38 | Outpatient (AMB) | payer OTHER, SELFPAY ==
--- NOTE | 2023-07-26 08:38 | MHC.OFFVIS ---
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 Allergies aspirin [ASPIRIN] Allergy (Intermediate, Verified 07/26/23 08:39) Facial Swelling/Hives/flushing Penicillins [PENICILLINS] Allergy (Intermediate, Verified 07/26/23 08:39) syncope Medication List - Last Reconciled 07/26/23 by Francisco Granger MD albuterol sulfate 90 mcg/actuation (Ventolin HFA) 2 puffs PO Q4H cane As directed cholecalciferol (vitamin D3) (Vitamin D3) 25 mcg PO DAILY clotrimazole 1% 1 appl topical BID 4 weeks doxepin 25 - 50 mg PO BEDTIME escitalopram oxalate 20 mg PO DAILY finasteride 5 mg PO DAILY 90 days hydroxyzine HCl 50 mg PO TID lidocaine HCl-hydrocortison ac 3-0.5 % 1 appl PA BEDTIME mirtazapine 15 mg PO BEDTIME omeprazole 20 mg PO BID Shower Chair As directed terazosin 5 mg PO BEDTIME 90 days tramadol 50 mg PO DAILY HPI HPI Comments History of Present Illness Details Rigoberto is a pleasant male. He is a patient of Dr. Al. He is seen for the following urologic conditions - lower urinary tract symptoms Telemedicine Evaluation 15 min Consultation Doximity Abel Video PSA remains at appropriate level Continue with current medications Twelve month follow-up PSA office Lower urinary tract symptoms Progressive and longstanding Urinary urgency and frequency with occasional accident, Weak stream, Hesitancy, Nocturia times 3-4 Current medication finasteride and terazosin 5 mg Family history prostate issues Prior medication tamsulosin Cystoscopy 03/07 wide prostate Does have dietary triggers such as coffee and spicy food PSA 06/07 2.4, 01/06 1.9, 04/07 4.5, 02/06 1.1, 08/08 1.4 SABINE 3+ prostate normal Therapeutic plan -continue current meds PFSH Medical History Hx of vertigo Edema Pulmonary nodule Cough Former cigarette smoker Hemorrhoid CAD (coronary artery disease) Erectile dysfunction BPH (benign prostatic hyperplasia) Myocardial infarct, old Hyperlipidemia HTN (hypertension) Dyspnea Abdominal aortic aneurysm (AAA) Insomnia Tobacco use disorder GERD (gastroesophageal reflux disease) Generalized anxiety disorder Surgical History Hx of colonoscopy History of cholecystectomy History of appendectomy Family History Mother Cancer Father Prostate cancer Heart defect Other Mental health disorder Social History Household Members: None Housing: Apartment Alcohol intake: current Alcohol intake frequency: does not drink Patient Tobacco Use Status: Former Tobacco user Quit Date: 2011 Tobacco use type: Cigarette e-Cigarette/Vaping Use: Never Used Second Hand Smoke Exposure: No service: No Current occupational status: disabled Cognitive needs: No Hearing needs: No Vision needs: No Assessment & Plan Assessment & Plan (1) Elevated PSA: Code(s): R97.20 - Elevated prostate specific antigen [PSA] (2) Bladder outlet obstruction: Code(s): N32.0 - Bladder-neck obstruction (3) Nocturia more than twice per night: Code(s): R35.1 - Nocturia Plan Twelve month follow-up PSA and PVR Medications: Refilled terazosin 5 mg PO BEDTIME 90 days 90 caps 3RF N32.0 - Bladder-neck obstruction, N40.1 - Benign prostatic hyperplasia with lower urinary tract symptoms, R35.0 - Frequency of micturition finasteride 5 mg PO DAILY 90 days 90 tabs 3RF N32.0 - Bladder-neck obstruction Patient Instructions: Imaging studies, laboratory and physical exam results were discussed and reviewed in detail. No major barriers to patient understanding were identified. An opportunity to ask questions regarding the treatment plan was provided. All questions were answered. The patient expressed understanding and agreement with the above treatment plan. The patient is aware they should contact our office by phone for worsening of their current condition or the appearance of new urologic symptoms. Compliance is encouraged with any medications and followup testing that is ordered. It is a privilege to participate in the urologic care of your patient. If you have any questions or concerns regarding treatment for the above conditions, or other urologic issues, please do not hesitate to contact me. The office telephone contact is [phone]. This note is constructed using voice recognition software. While every effort has been made to ensure accuracy senior medical transcriptionist errors may have been included. Yours sincerely, Dr Francisco Granger MD, PAT [facility] - Urology Providers of Expert, Compassionate Care for the Genitourinary System Telehealth Telehealth Location of provider rendering services: practice address Location of patient: address on file Patient Identification confirmed using: Name, : Yes Telehealth method: video Patient verbally consented to treatment: Yes Patient verbally consented to billing insurance company: Yes Patient informed of any privacy concerns related to visit: Yes Coding Level of Care Code Tele Est Pt Level 3 (32080) Diagnoses Elevated PSA R97.20 Bladder outlet obstruction N32.0 Nocturia more than twice per night R35.1
== END 2023-07-26 10:09 | disposition home or self-care (01) ==
LOC: HO.HUSH 08:38
PROVIDERS: PCP Internal Medicine; Visit Provider Urology
DX: R97.20 Elevated prostate specific antigen [PSA] (principal); N32.0 Bladder-neck obstruction; R35.1 Nocturia
CPT/HCPCS: 99213

== ENCOUNTER → 2023-07-26 08:38 | Outpatient (BNVA) | payer OTHER, SELFPAY | PROVIDERS: PCP Internal Medicine; Visit Provider Urology ==

== ENCOUNTER 2023-10-18 07:35 | Outpatient (AMB) | payer OTHER, SELFPAY ==
[2023-10-18 07:48] VITALS: BP 102/58; PULSE 69; O2SAT 98; BMI 26.0
--- NOTE | 2023-10-18 07:48 | A.OFFPC_ITS ---
Vital Signs 10/18/23 07:48 Height 5 ft 5 in Weight 156 lb BMI 26.0 BP 102/58 L Blood Pressure Location Lt brachial Position Sitting Pulse 69 Pulse Source Pulse Oximeter Pulse Oximetry (%) 98 Oxygen Delivery Method Room Air Intake Visit Reasons: Physical Allergies aspirin [ASPIRIN] Allergy (Intermediate, Verified 10/18/23 08:44) Facial Swelling/Hives/flushing Penicillins [PENICILLINS] Allergy (Intermediate, Verified 10/18/23 08:44) syncope Medication List - Last Reconciled 10/18/23 by Marcelo Chavarria MD albuterol sulfate 90 mcg/actuation (Ventolin HFA) 2 puffs PO Q4H cane As directed cholecalciferol (vitamin D3) (Vitamin D3) 25 mcg PO DAILY clotrimazole 1% 1 appl topical BID 4 weeks doxepin 25 - 50 mg PO BEDTIME escitalopram oxalate 20 mg PO DAILY finasteride 5 mg PO DAILY 90 days hydroxyzine HCl 50 mg PO TID lidocaine HCl-hydrocortison ac 3-0.5 % 1 appl [place] BEDTIME mirtazapine 15 mg PO BEDTIME omeprazole 20 mg PO BID Shower Chair As directed terazosin 5 mg PO BEDTIME 90 days tramadol 50 mg PO DAILY Tobacco use date assessed: 10/18/23 Dental Screening Dental Screen Date: 10/18/23 Did you have a dental visit in the last 12 months?: Yes Did you have a dental problem in the last 6 months where you did not have access to dental care?: No Was dental information given to patient?: Patient has dentist HPI Physical HPI Details 53-year-old male presents to the office for an annual physical. In addition, patient would like to discuss his ongoing pain symptoms. Patient continues to have low back pain, knee pain and in the ankles. Pain is constant and reasonably controlled with tramadol. Pain is relieved on lying down. Uses a cane to ambulate. Would like a urinal as he has difficulty getting up in the night to go to the bathroom. Patient also had bladder outlet obstruction in the past. Was seen by a urologist. On medications and no procedure has been planned. Recent PSA was in normal range. Depression symptoms are well controlled on the medications. Occasionally drives. 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 He lives alone. Compliant with medications. [facility] Medical History (Updated 10/18/23 @ 09:04 by Marcelo Chavarria MD) Pulmonary nodule Former cigarette smoker Hemorrhoid CAD (coronary artery disease) Erectile dysfunction BPH (benign prostatic hyperplasia) Myocardial infarct, old Hyperlipidemia HTN (hypertension) Dyspnea Abdominal aortic aneurysm (AAA) Insomnia Tobacco use disorder GERD (gastroesophageal reflux disease) Generalized anxiety disorder Surgical History Hx of colonoscopy History of cholecystectomy History of appendectomy Family History Mother Cancer Father Prostate cancer Heart defect Other Mental health disorder Social History Household Members: None Housing: Apartment Alcohol intake: current Alcohol intake frequency: does not drink Patient Tobacco Use Status: Former Tobacco user Tobacco use type: Cigarette e-Cigarette/Vaping Use: Never Used Second Hand Smoke Exposure: No service: No Current occupational status: disabled Cognitive needs: No Hearing needs: No Vision needs: No Questionnaire PHQ-9 Over the last 2 weeks, how often have you been bothered by any of the following problems? 1. Little interest or pleasure in doing things: not at all 2. Feeling down, depressed, or hopeless: not at all 3. Trouble falling or staying asleep, or sleeping too much: not at all 4. Feeling tired or having little energy: not at all 5. Poor appetite or overeating: not at all 6. Feeling bad about yourself - or that you are a failure or have let yourself or your family down: not at all 7. Trouble concentrating on things, such as reading the newspaper or watching television: not at all 8. Moving or speaking so slowly that other people could have noticed. Or the opposite - being so fidgety or restless that you have been moving around a lot more than usual: not at all 9. Thoughts that you would be better off or of hurting yourself in some way: not at all Total score: 0 Depression Screening Interpretation: Negative Depression Screening Done: Yes Source: Developed by Drs. Carlos Pelaez, Martha Tidwell, Kavon Mcmahon and colleagues, with an educational britney from [employer]. Thrive Questionnaire Date Thrive assessed: 10/18/23 I am a: Patient What is your living situation today?: I have a steady place to live Within the past 12 months, did the food you bought not last and you didn't have the money to get more?: Never true Within the past 12 months, did you worry whether your food would run out before you got money to buy more?: Never true Do you have trouble paying for medicines?: No Do you have trouble getting transportation to medical appointments?: No Do you have trouble paying your heating and electricity bill?: No Do you have trouble taking care of your child, family member or friend?: No Do you have trouble with day-to-day activities such as bathing, preparing meals, shopping, managing finances, etc.?: No Are you currently unemployed and looking for a job?: No Are you interested in more education?: No Currently or been in a relationship where the following occur: No concerns reported THRIVE Score: 0 AUDIT C Alcohol Use Questionnaire (AUDIT-C) 1. How often do you have a drink containing alcohol?: Never Total Score: 0 Score Reviewed/Action Taken: No NATALIIA-7 AMB Questionnaire NATALIIA-7 Date NATALIIA - 7 assessed: 10/18/23 Feeling nervous, anxious, or on edge: 0 = Not at all Not being able to stop or control worryin = Not at all Worrying too much about different things: 0 = Not at all Trouble relaxin = Not at all Being so restless that it is hard to sit still: 0 = Not at all Becoming easily annoyed or irritable: 0 = Not at all Feeling afraid as if something awful might happen: 0 = Not at all Total NATALIIA-7 score (0-4 normal; 5-9 mild; 10-14 moderate; 15-21 severe): 0 Source: Developed by Drs. Carlos Pelaez, Martha Tidwell, Kavon Mcmahon and colleagues, with an educational britney from [employer]. Physical exam (Primary Care) Vital Signs: Last Vital Signs Pulse 69 10/18/23 07:48 BP 102/58 L 10/18/23 07:48 Pulse Ox 98 10/18/23 07:48 Oxygen Delivery Method Room Air 10/18/23 07:48 Care Plan Goal for BP management: Blood pressure is in range. BMI result Body Mass Index 26.0 Tobacco/Smoking Status: Tobacco use Status Tobacco use date assessed 10/18/23 10/18/23 07:55 Patient Tobacco Use Status Former Tobacco user 10/18/23 07:55 Tobacco use type Cigarette 10/18/23 07:55 e-Cigarette/Vaping Use Never Used 10/18/23 07:55 PHQ-9: PHQ-9 Score PHQ-9: Total score 0 10/18/23 07:55 Depression Screening Interpretation: Negative Thrive Assessment: Date of Thrive Assessment Date Thrive assessed 10/18/23 10/18/23 07:55 Currently or been in a relationship where the following occur: No concerns reported Advance Care Planning discussion: Exists, not on file Date of discussion: 10/18/23 Who was present: Patient and daughter. Forms completed: Health Care Proxy and MOLST Time spent: 1-15 minutes, not on file Actual minutes spent: 5 Const General: cooperative and healthy appearing Nutritional Appearance: well nourished Orientation/consciousness: patient oriented x3 Limitations: no limitations HENMT Head: Yes normal to inspection Eyes General: appearance normal, both eyes and all related structures Neck Neck: Yes normal visual inspection Chest Chest palpation & inspection: normal palpation of entire chest wall Resp Effort & Inspection: normal respiratory effort Neuro General: patient oriented x3 Assessment and Plan Assessment & Plan (1) Polyarthralgia: Code(s): M25.50 - Pain in unspecified joint Plan: Blood work has been ordered. Will call with results. Tramadol to be continued. Cyclobenzaprine added to the regimen. (2) Major depression in partial remission: Code(s): F32.4 - Major depressive disorder, single episode, in partial remission Plan: Symptoms are well controlled. Continue current medications. (3) Abdominal aortic aneurysm (AAA): Code(s): I71.40 - Abdominal aortic aneurysm, without rupture, unspecified Plan: Ultrasound of the abdomen has been requested. (4) Annual physical exam: Code(s): Z00.00 - Encounter for general adult medical examination without abnormal findings Orders: Orders Basic Metabolic Panel Today F32.4 - Major depressive disorder, single episode, in partial remission, M25.50 - Pain in unspecified joint Complete Blood Count no Diff Today F32.4 - Major depressive disorder, single episode, in partial remission, M25.50 - Pain in unspecified joint Lipid Panel Today F32.4 - Major depressive disorder, single episode, in partial remission, M25.50 - Pain in unspecified joint UA and rflx microscopic Today F32.4 - Major depressive disorder, single episode, in partial remission, M25.50 - Pain in unspecified joint Hemoglobin A1c Today F32.4 - Major depressive disorder, single episode, in partial remission, M25.50 - Pain in unspecified joint Liver Panel Today F32.4 - Major depressive disorder, single episode, in partial remission, M25.50 - Pain in unspecified joint Thyroid Stimulating Hormone Today F32.4 - Major depressive disorder, single episode, in partial remission, M25.50 - Pain in unspecified joint Coding Level of Care Code Est Pt Level 4 (18556) Est Pt Prev Care 40-64y(98563) Diagnoses Polyarthralgia M25.50 Major depression in partial remission F32.4 Abdominal aortic aneurysm (AAA) I71.40 Annual physical exam Z00.00 Additional Codes Vital Signs *Quality* - Advance Care Planning discussion: Exists, not on file ([id number]) Vital Signs *Quality* - Time spent: 1-15 minutes, not on file ([id number])
== END 2023-10-18 08:11 | disposition home or self-care (01) ==
PROVIDERS: PCP Nurse Practitioner Family; Visit Provider Internal Medicine
DX: Z00.00 Encounter for general adult medical examination without abnormal findings (principal); M25.50 Pain in unspecified joint; F32.4 Major depressive disorder, single episode, in partial remission; I71.40 Abdominal aortic aneurysm, without rupture, unspecified
CPT/HCPCS: 1123F; 99214; 99396

== ENCOUNTER 2023-10-18 08:16 | Outpatient (REF) | payer OTHER, SELFPAY ==
[2023-10-18 09:10] LABS: Hematocrit 44.2 % (42.0-52.0); Hemoglobin 15.1 g/dl (14.0-18.0); Mean Corpuscular HGB Conc 34.2 g/dl (31.0-36.0); Mean Corpuscular Hemoglobin 31.1 pg (27.0-33.0); Mean Corpuscular Volume 90.9 fL (80.0-98.0); Mean Platelet Volume 9.5 fL (9.4-12.4); Platelet Count 221 X10*3/uL (160-400); Red Blood Count 4.86 X10*6/uL (4.60-5.80); Red Cell Distribution Width 13.2 % (11.0-16.0); White Blood Count 7.2 X10*3/uL (4.8-10.8)
[2023-10-18 09:25] LABS: Estimated Average Glucose 108 mg/dL; Hemoglobin A1c % 5.4 % (<6.0)
[2023-10-18 09:36] LABS: Alanine Aminotransferase 17 U/L (0-40); Albumin Level 4.2 g/dL (3.5-5.0); Alkaline Phosphatase 59 U/L (39-117); Anion Gap 11 (12-20); Aspartate Amino Transferase 15 U/L (5-37); Bilirubin Direct 0.2 mg/dL (0.0-0.5); Bilirubin Total 0.6 mg/dL (0.0-1.0); Blood Urea Nitrogen 17 mg/dL (9-16); Calcium 9.6 mg/dL (8.4-10.2); Carbon Dioxide 26 mmol/L (22-29); Chloride 105 mmol/L (96-108); Estimated Glomerular Filt Rate > 60; Glucose Random 102 mg/dL (60-115); Potassium 4.4 mmol/L (3.3-5.1); Sodium 138 mmol/L (135-145); Total Protein 7.5 g/dL (6.5-8.0)
[2023-10-18 09:41] LABS: Appearance Urine Clear; Color Urine Yellow; Glucose Urine UA Negative (Negative); Leukocyte Esterase Urine Negative (Negative); Nitrite Urine Negative (Negative); PH 5.5 (5.0-9.0); Specific Gravity - Urine >= 1.030 (1.005-1.025); Urine Blood Negative (Negative); Urine Ketones Negative (Negative); Urine Protein Negative (Neg-Trace)
== END 2023-10-18 08:17 | disposition home or self-care (01) ==
LOC: HO.LAB 08:16
PROVIDERS: PCP Internal Medicine; Visit Provider Internal Medicine
DX: Z13.1 Encounter for screening for diabetes mellitus (principal); I71.40 Abdominal aortic aneurysm, without rupture, unspecified; N32.0 Bladder-neck obstruction; M19.90 Unspecified osteoarthritis, unspecified site; M25.50 Pain in unspecified joint; F32.4 Major depressive disorder, single episode, in partial remission
CPT/HCPCS: 36415; 80048; 80076; 81003; 83036; 85027

== ENCOUNTER 2024-01-15 10:03 | Outpatient (AMB) | payer OTHER, SELFPAY ==
[2024-01-15 10:05] VITALS: BP 112/70; PULSE 78; O2SAT 97; BMI 25.6
--- NOTE | 2024-01-15 10:05 | A.OFFPC_ITS ---
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 Accompanied by: Daughter Allergies aspirin [ASPIRIN] Allergy (Intermediate, Verified 01/15/24 10:28) Facial Swelling/Hives/flushing Penicillins [PENICILLINS] Allergy (Intermediate, Verified 01/15/24 10:28) syncope Medication List - Last Reconciled 01/15/24 by Marcelo Chavarria MD albuterol sulfate 90 mcg/actuation (Ventolin HFA) 2 puffs PO Q4H cane As directed cholecalciferol (vitamin D3) (Vitamin D3) 25 mcg PO DAILY clotrimazole 1% 1 appl topical BID 4 weeks cyclobenzaprine 10 mg PO BEDTIME doxepin 25 - 50 mg PO BEDTIME escitalopram oxalate 20 mg PO DAILY finasteride 5 mg PO DAILY 90 days hydroxyzine HCl 50 mg PO TID lidocaine HCl-hydrocortison ac 3-0.5 % 1 appl SC BEDTIME mirtazapine 15 mg PO BEDTIME omeprazole 20 mg PO BID [Plastic urinal As directed] Shower Chair As directed terazosin 5 mg PO BEDTIME 90 days tramadol 50 mg PO DAILY Tobacco use date assessed: 10/18/23 Dental Screening Dental Screen Date: 10/18/23 HPI PossibleLinda HPI Details 54-year-old male presents to the office for a sick visit. He is accompanied by his daughter. Patient is walking with a cane. Patient started experiencing low back pain on the right side since yesterday. Sudden onset of pain with no specific fall or injury prior to the onset of symptoms. Also reporting urinary hesitation. Associated he is having excessive flatulence. No fevers or chills. [facility] Medical History (Updated 10/18/23 @ 09:04 by Marcelo Chavarria MD) Pulmonary nodule Former cigarette smoker Hemorrhoid CAD (coronary artery disease) Erectile dysfunction BPH (benign prostatic hyperplasia) Myocardial infarct, old Hyperlipidemia HTN (hypertension) Dyspnea Abdominal aortic aneurysm (AAA) Insomnia Tobacco use disorder GERD (gastroesophageal reflux disease) Generalized anxiety disorder Surgical History Hx of colonoscopy History of cholecystectomy History of appendectomy Family History Mother Cancer Father Prostate cancer Heart defect Other Mental health disorder Social History Household Members: None Housing: Apartment Alcohol intake: current Alcohol intake frequency: does not drink Patient Tobacco Use Status: Former Tobacco user Tobacco use type: Cigarette e-Cigarette/Vaping Use: Never Used Second Hand Smoke Exposure: No service: No Current occupational status: disabled Cognitive needs: No Hearing needs: No Vision needs: No Questionnaire Thrive Questionnaire Date Thrive assessed: 10/18/23 Are you currently unemployed and looking for a job?: No NATALIIA-7 AMB Questionnaire NATALIIA-7 Date NATALIIA - 7 assessed: 10/18/23 Source: Developed by Drs. Carlos Pelaez, Martha Tidwell, Kavon Mcmahon and colleagues, with an educational britney from [employer]. Physical exam (Primary Care) Vital Signs: Last Vital Signs Pulse 78 01/15/24 10:05 BP 112/70 01/15/24 10:05 Pulse Ox 97 01/15/24 10:05 Oxygen Delivery Method Room Air 01/15/24 10:05 BMI result Body Mass Index 25.6 Tobacco/Smoking Status: Tobacco use Status Tobacco use date assessed 10/18/23 01/15/24 10:08 Patient Tobacco Use Status Former Tobacco user 01/15/24 10:08 Tobacco use type Cigarette 01/15/24 10:08 e-Cigarette/Vaping Use Never Used 01/15/24 10:08 Thrive Assessment: Date of Thrive Assessment Date Thrive assessed 10/18/23 01/15/24 10:08 Const General: cooperative and healthy appearing Nutritional Appearance: well nourished Orientation/consciousness: patient oriented x3 Limitations: no limitations HENMT Head: Yes normal to inspection Eyes General: appearance normal, both eyes and all related structures Neck Neck: Yes normal visual inspection Chest Chest palpation & inspection: normal palpation of entire chest wall Resp Effort & Inspection: normal respiratory effort Back/Spine/Pelvis Other: Back: Discomfort over the spine in the lower lumbar area. Positive paraspinal discomfort. Neuro General: patient oriented x3 Results AMB Urinalysis, Automated UA Leukoctes 1 Leatha/uL Last Edit by Eveliadav Rivera, [facility] on 01/15/24 10:18 70 Leatha/uL Edinson Rivera 01/15/24 10:18 UA Nitrite Positive Last Edit by Eveliasalmagarrett Rivera, [facility] on 01/15/24 10:18 UA Urobilinogen 2 mg/dL Last Edit by Eveliasalmagarrett Rivera, [facility] on 01/15/24 10:18 4mg/dL Bannersalmagarrett Rivera 01/15/24 10:18 UA Protein 1 mg/dL Last Edit by Eveliadav Rivera, A on 01/15/24 10:18 30mg/dL Macgarrett Rivera 01/15/24 10:18 UA pH 6.0 Last Edit by Edinson Maceillo, [facility] on 01/15/24 10:18 UA Blood 0 Paul/uL Last Edit by Eveliasalmagarrett Rivera, [facility] on 01/15/24 10:18 UA Specific [place] 1.025 Last Edit by Edinson Maceillo, [facility] on 01/15/24 10 :18 UA Ketone Positive Last Edit by Eveliasalmagarrett Rivera, [facility] on 01/15/24 10:18 40mg/dL Edinson Rivera 01/15/24 10:18 UA Bilirubin 0 mg/dL Last Edit by Eveliasalmagarrett Rivera, [facility] on 01/15/24 10:18 UA Glucose 0 mg/dL Last Edit by Eveliasalmagarrett Rivera, [facility] on 01/15/24 10:18 Results Reviewed Results Reviewed: Laboratory Last Values Urine pH (Auto) 6.0 01/15/24 10:15 Specific [place] (Auto) 1.025 01/15/24 10:15 Urine Protein (Auto) 1 mg/dL 01/15/24 10:15 Glucose (UA)(Auto) 0 mg/dL 01/15/24 10:15 Urine Ketones (Auto) Positive 01/15/24 10:15 Urine Blood (Auto) 0 Paul/uL 01/15/24 10:15 Urine Nitrite (Auto) Positive 01/15/24 10:15 Urine Bilirubin (Auto) 0 mg/dL 01/15/24 10:15 Urine Urobilinogen (Auto) 2 mg/dL 01/15/24 10:15 Leukocyte Esterase (Auto) 1 Leatha/uL 01/15/24 10:15 Assessment and Plan Assessment & Plan (1) Lower thoracic back pain: Code(s): M54.6 - Pain in thoracic spine Plan: Symptoms could represent an underlying urinary tract infection. Urinalysis was positive for leuks and negative for blood. However kidney stone is also a possibility. Antibiotics, Pyridium and PPI have been called in. If symptoms do not improve to follow-up here. Orders: Orders AMB Urinalysis Automated Today N20.0 - Calculus of kidney Coding Level of Care Code Est Pt Level 3 (50927) Complex EM visit Add On G2211 Diagnoses Lower thoracic back pain M54.6
== END 2024-01-15 10:44 | disposition home or self-care (01) ==
PROVIDERS: PCP Internal Medicine; Visit Provider Internal Medicine
DX: M54.6 Pain in thoracic spine (principal); N20.0 Calculus of kidney

== ENCOUNTER → 2024-01-15 10:03 | Outpatient (BNVA) | payer OTHER, SELFPAY | PROVIDERS: PCP Internal Medicine; Visit Provider Internal Medicine | DX: M54.6 Pain in thoracic spine (principal); N20.0 Calculus of kidney | CPT/HCPCS: 81003; 99212 ==

== ENCOUNTER 2024-02-01 10:30 | Outpatient (REF) | payer OTHER, SELFPAY ==
--- NOTE | ~2024-02-01 | XR_ITS ---
EXAMINATION: XR LUMBOSACRAL SPINE, 3 VIEWS CLINICAL INFORMATION: Low back pain, unspecified M54.50. 54-year-old male patient with complaints of chronic lower back pain for a while but no known injury. COMPARISON: CT abdomen pelvis with contrast 04/22/2019. TECHNIQUE: Three views of the lumbosacral spine. FINDINGS: Normal vertebral body alignment. The lumbar lordosis is maintained. No acute fracture or subluxation. No loss of vertebral body height. Mild loss of intervertebral disc height with tiny endplate osteophytes at L2 through L5. Mild multilevel bilateral facet arthropathy. No concerning lytic or blastic osseous lesion. No abnormal soft tissue calcification. XR/XR lumbar spine 2-3V IMPRESSION: Mild degenerative disc disease at L2 through L5. Mild multilevel bilateral facet arthropathy. Electronically signed by: Rolly Barber MD 04/16/2024 12:11 PM [facility]
== END 2024-02-01 10:31 | disposition home or self-care (01) ==
LOC: HO.XRAY 10:30
PROVIDERS: PCP Internal Medicine; Visit Provider Nurse Practitioner Family
DX: M54.50 Low back pain, unspecified (principal); G89.29 Other chronic pain; R39.15 Urgency of urination
CPT/HCPCS: 72100; 81003; 96127; 99212

== ENCOUNTER 2024-02-01 10:30 | Outpatient (AMB) | payer OTHER, SELFPAY ==
[2024-02-01 10:33] VITALS: BP 118/68; PULSE 88; O2SAT 96; BMI 25.1
--- NOTE | 2024-02-01 10:33 | MHC.PC.OV ---
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 Accompanied by: Self / Same As Patient Allergies aspirin [ASPIRIN] Allergy (Intermediate, Verified 02/01/24 10:34) Facial Swelling/Hives/flushing pantoprazole Allergy (Intermediate, Verified 02/01/24 10:34) Nausea Penicillins [PENICILLINS] Allergy (Intermediate, Verified 02/01/24 10:34) syncope sulfamethoxazole [From Bactrim] Allergy (Intermediate, Verified 02/01/24 10:34) Swelling trimethoprim [From Bactrim] Allergy (Intermediate, Verified 02/01/24 10:34) Swelling Tobacco use date assessed: 10/18/23 Dental Screening Dental Screen Date: 10/18/23 HPI HPI Comments History of Present Illness Details 54 y/o male patient who presents to the clinic for EDF. Pt was admitted at [facility] on 01/17/24 for Lower back pain. Pt left AMA before he could be evaluated and treated. He does h/o Chronic lower back pain for years. He takes Tramadol for pain relief. He has tried Physical therapy in the past with no relief. Pt continues to have low back pain, asking for Xray of Back. Pt also c/o urinary symptoms today asking to have his urine tested. [facility] Medical History (Updated 10/18/23 @ 09:04 by Marcelo Chavarria MD) Pulmonary nodule Former cigarette smoker Hemorrhoid CAD (coronary artery disease) Erectile dysfunction BPH (benign prostatic hyperplasia) Myocardial infarct, old Hyperlipidemia HTN (hypertension) Dyspnea Abdominal aortic aneurysm (AAA) Insomnia Tobacco use disorder GERD (gastroesophageal reflux disease) Generalized anxiety disorder Surgical History Hx of colonoscopy History of cholecystectomy History of appendectomy Family History Mother Cancer Father Prostate cancer Heart defect Other Mental health disorder Social History Household Members: None Housing: Apartment Alcohol intake: current Alcohol intake frequency: does not drink Patient Tobacco Use Status: Former Tobacco user Tobacco use type: Cigarette e-Cigarette/Vaping Use: Never Used Second Hand Smoke Exposure: No service: No Current occupational status: disabled Cognitive needs: No Hearing needs: No Vision needs: No Questionnaire PHQ-9 Over the last 2 weeks, how often have you been bothered by any of the following problems? 1. Little interest or pleasure in doing things: not at all 2. Feeling down, depressed, or hopeless: not at all 3. Trouble falling or staying asleep, or sleeping too much: not at all 4. Feeling tired or having little energy: not at all 5. Poor appetite or overeating: not at all 6. Feeling bad about yourself - or that you are a failure or have let yourself or your family down: not at all 7. Trouble concentrating on things, such as reading the newspaper or watching television: not at all 8. Moving or speaking so slowly that other people could have noticed. Or the opposite - being so fidgety or restless that you have been moving around a lot more than usual: not at all 9. Thoughts that you would be better off or of hurting yourself in some way: not at all Total score: 0 Depression Screening Interpretation: Negative Depression Screening Done: Yes Source: Developed by Drs. Carlos Pelaez, Kavon Velazquez and colleagues, with an educational britney from [employer]. Thrive Questionnaire Date Thrive assessed: 10/18/23 Are you currently unemployed and looking for a job?: No AUDIT C Alcohol Use Questionnaire (AUDIT-C) 1. How often do you have a drink containing alcohol?: Never Total Score: 0 Score Reviewed/Action Taken: No NATALIIA-7 AMB Questionnaire NATALIIA-7 Date NATALIIA - 7 assessed: 10/18/23 Source: Developed by Drs. Carlos Pelaez, Kavon Velazquez and colleagues, with an educational britney from [employer]. Review of Systems Const All systems reviewed & are unremarkable except as noted in HPI and below Physical exam (Primary Care) Vital Signs: Last Vital Signs Pulse 88 02/01/24 10:33 BP 118/68 02/01/24 10:33 Pulse Ox 96 02/01/24 10:33 Oxygen Delivery Method Room Air 02/01/24 10:33 BMI result Body Mass Index 25.1 Tobacco/Smoking Status: Tobacco use Status Tobacco use date assessed 10/18/23 02/01/24 10:35 Patient Tobacco Use Status Former Tobacco user 02/01/24 10:35 Tobacco use type Cigarette 02/01/24 10:35 e-Cigarette/Vaping Use Never Used 02/01/24 10:35 PHQ-9: PHQ-9 Score PHQ-9: Total score 0 02/01/24 11:06 Depression Screening Interpretation: Negative Thrive Assessment: Date of Thrive Assessment Date Thrive assessed 10/18/23 02/01/24 10:35 Const General: cooperative and no acute distress; No comfortable Orientation/consciousness: patient oriented x3 Resp Effort & Inspection: normal respiratory effort Cardio Heart sounds: S1 normal heart sound present and S2 normal heart sound present General: Yes CVA tenderness Back/Spine/Pelvis Back: CVA tenderness and back tenderness Thoracic/Lumbar Spine: pain with thoraco-lumbar ROM, thoraco-lumbar spasm and lumbar spinal tenderness Neuro General: patient oriented x3, gait normal and moves all extremities Psych Speech and movement: Normal speech and movement present Results AMB Urinalysis, Automated UA Leukoctes 125 Leatha/uL Last Edit by CHERLY Robins on 02/01/24 11:44 UA Nitrite Negative Last Edit by CHERYL Robins on 02/01/24 11:44 UA Urobilinogen 0 mg/dL Last Edit by CHERYL Robins on 02/01/24 11:44 UA Protein 0 mg/dL Last Edit by CHERYL Robins on 02/01/24 11:44 UA pH 6.0 Last Edit by CHERYL Robins on 02/01/24 11:44 UA Blood 0 Paul/uL Last Edit by CHERYL Robins on 02/01/24 11:44 UA Specific [place] 1.030 Last Edit by CHERYL Robins on 02/01/24 11:44 UA Ketone Negative Last Edit by CHERYL Robins on 02/01/24 11:44 UA Bilirubin 1 mg/dL Last Edit by CHERYL Robins on 02/01/24 11:44 UA Glucose 0 mg/dL Last Edit by CHERYL Robins on 02/01/24 11:44 Coding Level of Care Code Est Pt Level 4 (81229) Diagnoses Chronic midline low back pain without sciatica M54.50; G89.29 Chronicity: chronic Back pain laterality: midline Sciatica presence: without sciatica Urinary urgency R39.15 Time Spent (min) 20 Comment Spent on reviewing hospital notes Assessment & Plan Assessment & Plan (1) Low back pain: Code(s): M54.50 - Low back pain, unspecified Qualifiers: Chronicity: chronic Back pain laterality: midline Sciatica presence: without sciatica Qualified Code(s): M54.50 - Low back pain, unspecified; G89.29 - Other chronic pain Plan: Ordered Lumbar Xrays Ordered Lidocaine patches Pt declined Physical therapy Continue with Tramadol as prescribed. (2) Urinary urgency: Code(s): R39.15 - Urgency of urination Category: Medical Plan: Amb Urinalysis positive for Leuco Ordered Cipro Orders: Orders XR lumbar spine 2-3V Today G89.29 - Other chronic pain, M54.50 - Low back pain, unspecified AMB Urinalysis Automated Today M54.9 - Dorsalgia, unspecified Medications: New nitrofurantoin monohyd/m-cryst 100 mg (Macrobid) must administer with a meal/food. For Urine infection. 100 mg PO Q12H 7 days 14 caps 0RF R39.15 - Urgency of urination lidocaine 5% leave on most painful area for up to 12 hrs 1 patch topical DAILY 30 ea 0RF G89.29 - Other chronic pain, M54.50 - Low back pain, unspecified cyclobenzaprine 10 mg PO BEDTIME 10 tabs 0RF G89.29 - Other chronic pain, M54.50 - Low back pain, unspecified
== END 2024-02-01 11:19 | disposition home or self-care (01) ==
PROVIDERS: PCP Internal Medicine; Visit Provider Nurse Practitioner Family
DX: M54.50 Low back pain, unspecified (principal); G89.29 Other chronic pain; R39.15 Urgency of urination; M54.9 Dorsalgia, unspecified

== ENCOUNTER 2024-03-18 10:15 | Outpatient (REF) | payer OTHER, SELFPAY ==
[2024-03-18 11:19] LABS: Appearance Urine Clear; Color Urine Yellow; Glucose Urine UA Negative (Negative); Leukocyte Esterase Urine Negative (Negative); Nitrite Urine Negative (Negative); Urine Blood Negative (Negative); Urine Ketones Negative (Negative); Urine Protein Negative (Neg-Trace)
== END 2024-03-18 10:16 | disposition home or self-care (01) ==
LOC: HO.LAB 10:15
PROVIDERS: PCP Internal Medicine; Visit Provider Internal Medicine
DX: R39.15 Urgency of urination (principal); R30.0 Dysuria
CPT/HCPCS: 81003; 87086; 99212

== ENCOUNTER 2024-03-18 10:48 | Outpatient (AMB) | payer OTHER, SELFPAY ==
--- NOTE | 2024-03-18 10:51 | A.OFFPC_ITS ---
Vital Signs 03/18/24 10:53 Height 5 ft 5 in Weight 152 lb 8 oz BMI 25.4 BP 130/70 Blood Pressure Location Lt brachial Position Sitting Pulse 100 Pulse Source Pulse Oximeter Pulse Oximetry (%) 99 Oxygen Delivery Method Room Air Intake Visit Reasons: UA results/Kidney issues Intake Note: Patient is here to follow up on UA results and Kidney issues. 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 Accompanied by: Daughter Allergies aspirin [ASPIRIN] Allergy (Intermediate, Verified 03/18/24 11:53) Facial Swelling/Hives/flushing pantoprazole Allergy (Intermediate, Verified 03/18/24 11:53) Nausea Penicillins [PENICILLINS] Allergy (Intermediate, Verified 03/18/24 11:53) syncope sulfamethoxazole [From Bactrim] Allergy (Intermediate, Verified 03/18/24 11:53) Swelling trimethoprim [From Bactrim] Allergy (Intermediate, Verified 03/18/24 11:53) Swelling Medication List - Last Reconciled 03/18/24 by Marcelo Chavarria MD albuterol sulfate 90 mcg/actuation (Ventolin HFA) 2 puffs PO Q4H cane As directed cholecalciferol (vitamin D3) (Vitamin D3) 25 mcg PO DAILY clotrimazole 1% 1 appl topical BID 4 weeks cyclobenzaprine 10 mg PO BEDTIME cyclobenzaprine 10 mg PO BEDTIME doxepin 25 - 50 mg PO BEDTIME escitalopram oxalate 20 mg PO DAILY finasteride 5 mg PO DAILY 90 days hydroxyzine HCl 50 mg PO TID lidocaine HCl-hydrocortison ac 3-0.5 % 1 appl [place] BEDTIME mirtazapine 15 mg PO BEDTIME omeprazole 20 mg PO BID pantoprazole 40 mg PO DAILY phenazopyridine (Pyridium) 200 mg PO TID 3 days [Plastic urinal As directed] Shower Chair As directed terazosin 5 mg PO BEDTIME 90 days tramadol 50 mg PO DAILY Tobacco use date assessed: 03/18/24 Dental Screening Dental Screen Date: 10/18/23 HPI UA results/Kidney issues HPI Details The patient is a 54-year-old male presenting with concerns about persistent lower back pain and a past urinary tract infection (UTI). The patient's history of back pain is longstanding, with episodes of varying intensity. Pain is typically localized on the right side, sometimes radiating to the middle of the back. The patient describes exacerbating factors such as movement and notes that the pain occasionally improves but can become severe, limiting activity. Stretching exercises have not been incorporated into his routine, and he uses a cane for mobility due to back pain. Previous diagnoses include osteoarthritis and benign prostatic hyperplasia, which may contribute to his symptoms of lower back discomfort. The patient reported a past UTI, expressing concern about lingering irritative symptoms, such as a burning sensation, although his physician, Dr. Granger, suggested that symptoms could also relate to prostate enlargement and assured him they were not cause for concern. [facility] Medical History Pulmonary nodule Former cigarette smoker Hemorrhoid CAD (coronary artery disease) Erectile dysfunction BPH (benign prostatic hyperplasia) Myocardial infarct, old Hyperlipidemia HTN (hypertension) Dyspnea Abdominal aortic aneurysm (AAA) Insomnia Tobacco use disorder GERD (gastroesophageal reflux disease) Generalized anxiety disorder Surgical History Hx of colonoscopy (~05/18/22) History of cholecystectomy History of appendectomy Family History Mother Cancer Father Prostate cancer Heart defect Other Mental health disorder Social History Household Members: None Housing: Apartment Alcohol intake: current Alcohol intake frequency: does not drink Patient Tobacco Use Status: Former Tobacco user Tobacco use type: Cigarette e-Cigarette/Vaping Use: Never Used Second Hand Smoke Exposure: No service: No Current occupational status: disabled Cognitive needs: No Hearing needs: No Vision needs: No Questionnaire Thrive Questionnaire Date Thrive assessed: 10/18/23 Are you currently unemployed and looking for a job?: No NATALIIA-7 AMB Questionnaire NATALIIA-7 Date NATALIIA - 7 assessed: 10/18/23 Source: Developed by Drs. Carlos Pelaez, Martha Tidwell, Kavon Mcmahon and colleagues, with an educational britney from [employer]. Physical exam (Primary Care) Vital Signs: Last Vital Signs Pulse 100 03/18/24 10:53 BP 130/70 03/18/24 10:53 Pulse Ox 99 03/18/24 10:53 Oxygen Delivery Method Room Air 03/18/24 10:53 BMI result Body Mass Index 25.4 Tobacco/Smoking Status: Tobacco use Status Tobacco use date assessed 03/18/24 03/18/24 11:01 Patient Tobacco Use Status Former Tobacco user 03/18/24 11:01 Tobacco use type Cigarette 03/18/24 11:01 e-Cigarette/Vaping Use Never Used 03/18/24 11:01 Thrive Assessment: Date of Thrive Assessment Date Thrive assessed 10/18/23 03/18/24 11:01 Const General: cooperative and healthy appearing Nutritional Appearance: well nourished Orientation/consciousness: patient oriented x3 Limitations: no limitations HENMT Head: Yes normal to inspection Eyes General: appearance normal, both eyes and all related structures Neck Neck: Yes normal visual inspection Chest Chest palpation & inspection: normal palpation of entire chest wall Resp Effort & Inspection: normal respiratory effort Neuro General: patient oriented x3 Coding Level of Care Code Est Pt Level 3 (44076) Complex EM visit Add On G2211 Diagnoses Urinary urgency R39.15 Assessment & Plan Assessment & Plan (1) Urinary urgency: Code(s): R39.15 - Urgency of urination Category: Medical Plan: Urinalysis reviewed. No further antibiotics needed.
[2024-03-18 10:53] VITALS: BP 130/70; PULSE 100; O2SAT 99; BMI 25.4
== END 2024-03-18 11:35 | disposition home or self-care (01) ==
PROVIDERS: PCP Internal Medicine; Visit Provider Internal Medicine
DX: R39.15 Urgency of urination (principal)

== ENCOUNTER 2024-04-18 08:59 | Outpatient (REF) | payer OTHER, SELFPAY ==
[2024-04-18 10:49] LABS: MANUAL DIFF FLAG NO
[2024-04-18 11:20] LABS: Basophils Absolute Auto 0.1 X10*3/uL (0.0-0.2); Basophils Percent Auto 0.8 % (0-2); Eosinophils Absolute Auto 0.7 X10*3/uL (0.0-0.4); Eosinophils Percent Auto 8.8 % (0-4); Hematocrit 41.9 % (42.0-52.0); Hemoglobin 14.3 g/dl (14.0-18.0); Imm Gran Abs Auto 0.03 X10*3/uL (0.00-0.03); Imm Gran Pct Auto 0.4 % (0.0-0.4); Lymphocytes Absolute Auto 1.6 X10*3/uL (1.2-4.9); Lymphocytes Percent Auto 22.2 % (20-40); Mean Corpuscular HGB Conc 34.1 g/dl (31.0-36.0); Mean Corpuscular Hemoglobin 31.2 pg (27.0-33.0); Mean Corpuscular Volume 91.5 fL (80.0-98.0); Mean Platelet Volume 9.4 fL (9.4-12.4); Monocytes Absolute Auto 0.6 X10*3/uL (0.1-1.2); Monocytes Percent Auto 8.7 % (2-11); Neutrophils Absolute Auto 4.3 x10*3/uL (2.0-8.3); Neutrophils Percent Auto 59.1 % (45-73); Platelet Count 229 X10*3/uL (160-400); Red Blood Count 4.58 X10*6/uL (4.60-5.80); Red Cell Distribution Width 13.7 % (11.0-16.0); White Blood Count 7.4 X10*3/uL (4.8-10.8)
[2024-04-18 11:23] LABS: Estimated Average Glucose 103 mg/dL; Hemoglobin A1C 121.0079 umol/L; Hemoglobin A1c % 5.2 % (<6.0); Total Hemoglobin (HGBA1C) 3613.6777 umol/L
[2024-04-18 12:06] LABS: PSA,Total (Free>4and<10) 1.52 ng/mL (0.00-4.00)
[2024-04-18 12:11] LABS: Alanine Aminotransferase 15 U/L (0-40); Albumin Level 4.5 g/dL (3.5-5.0); Alkaline Phosphatase 58 U/L (39-117); Anion Gap 12 (12-20); Aspartate Amino Transferase 17 U/L (5-37); Bilirubin Direct 0.2 mg/dL (0.0-0.5); Bilirubin Total 0.9 mg/dL (0.0-1.0); Blood Urea Nitrogen 17 mg/dL (9-16); Calcium 9.1 mg/dL (8.4-10.2); Carbon Dioxide 25 mmol/L (22-29); Chloride 107 mmol/L (96-108); Cholesterol 183 mg/dL (<200); Estimated Glomerular Filt Rate > 60; Glucose Fasting 103 mg/dL (60-99); HDL Cholesterol 40 mg/dL (>40); LDL Cholesterol Calculated 122 mg/dL (<100); Magnesium 2.2 mg/dL (1.6-2.6); Potassium 4.2 mmol/L (3.3-5.1); Sodium 140 mmol/L (135-145); TSH reflex Free T4 1.27 uIU/mL (0.32-4.0); Thyroid Stimulating Hormone 1.27 uIU/mL (0.32-4.0); Total Protein 7.5 g/dL (6.5-8.0); Triglycerides 108 mg/dL (<150); Vitamin D 25-OH Total 41.8 ng/mL (>30)
[2024-04-18 12:20] LABS: Folate 15.7 ng/mL (> or = 4.0); Vitamin B12 518 pg/mL (200-900)
== END 2024-04-18 09:00 | disposition home or self-care (01) ==
LOC: HO.LAB 08:59
PROVIDERS: Absent Provider Physician Assistant Medical; PCP Internal Medicine; Visit Provider Internal Medicine
DX: Z09 Encounter for follow-up examination after completed treatment for conditions other than malignant neoplasm (principal); Z12.5 Encounter for screening for malignant neoplasm of prostate; Z13.1 Encounter for screening for diabetes mellitus; R97.20 Elevated prostate specific antigen [PSA]; M25.50 Pain in unspecified joint; F32.4 Major depressive disorder, single episode, in partial remission; E78.5 Hyperlipidemia, unspecified; K63.5 Polyp of colon; F17.200 Nicotine dependence, unspecified, uncomplicated; K21.9 Gastro-esophageal reflux disease without esophagitis; F41.1 Generalized anxiety disorder; M19.90 Unspecified osteoarthritis, unspecified site; I10 Essential (primary) hypertension; B35.6 Tinea cruris; Z71.6 Tobacco abuse counseling
CPT/HCPCS: 36415; 80053; 80061; 80076; 82248; 82306; 82607; 82746; 83036; 83735; 84153; 84443; 85025; 96127; 99212

== ENCOUNTER 2024-04-18 08:59 | Outpatient (AMB) | payer OTHER, SELFPAY ==
[2024-04-18 09:39] VITALS: BP 100/76; PULSE 89; O2SAT 96; BMI 25.3
--- NOTE | 2024-04-18 09:39 | MHC.PC.OV ---
Vital Signs 04/18/24 09:39 Height 5 ft 5 in Weight 152 lb BMI 25.3 BP 100/76 Blood Pressure Location Lt brachial Position Sitting Pulse 89 Pulse Source Pulse Oximeter Pulse Oximetry (%) 96 Oxygen Delivery Method Room Air Intake Visit Reasons: 6 Month F/U Food Or Baggage Handling [place] Required: No Accompanied by: Self / Same As Patient Allergies aspirin [ASPIRIN] Allergy (Intermediate, Verified 04/18/24 10:23) Facial Swelling/Hives/flushing pantoprazole Allergy (Intermediate, Verified 04/18/24 10:23) Nausea Penicillins [PENICILLINS] Allergy (Intermediate, Verified 04/18/24 10:23) syncope sulfamethoxazole [From Bactrim] Allergy (Intermediate, Verified 04/18/24 10:23) Swelling trimethoprim [From Bactrim] Allergy (Intermediate, Verified 04/18/24 10:23) Swelling Medication List - Last Reconciled 04/18/24 by Fariha Magdaleno PA-C albuterol sulfate 90 mcg/actuation (Ventolin HFA) 2 puffs PO Q4H cane As directed cholecalciferol (vitamin D3) (Vitamin D3) 25 mcg PO DAILY clotrimazole 1% 1 appl topical BID 4 weeks cyclobenzaprine 10 mg PO BEDTIME escitalopram oxalate 20 mg PO DAILY finasteride 5 mg PO DAILY 90 days hydroxyzine HCl 50 mg PO TID lidocaine HCl-hydrocortison ac 3-0.5 % 1 appl [place] BEDTIME mirtazapine 15 mg PO BEDTIME omeprazole 20 mg PO BID pantoprazole 40 mg PO DAILY phenazopyridine (Pyridium) 200 mg PO TID 3 days [Plastic urinal As directed] Shower Chair As directed terazosin 5 mg PO BEDTIME 90 days tramadol 50 mg PO DAILY Tobacco use date assessed: 04/18/24 Dental Screening Dental Screen Date: 04/18/24 Did you have a dental visit in the last 12 months?: Yes Did you have a dental problem in the last 6 months where you did not have access to dental care?: No Was dental information given to patient?: Patient has dentist [facility] Medical History Pulmonary nodule Former cigarette smoker Hemorrhoid CAD (coronary artery disease) Erectile dysfunction BPH (benign prostatic hyperplasia) Myocardial infarct, old Hyperlipidemia HTN (hypertension) Dyspnea Abdominal aortic aneurysm (AAA) Insomnia Tobacco use disorder GERD (gastroesophageal reflux disease) Generalized anxiety disorder Surgical History Hx of colonoscopy (~05/18/22) History of cholecystectomy History of appendectomy Family History Mother Cancer Father Prostate cancer Heart defect Other Mental health disorder Social History Household Members: None Housing: Apartment Alcohol intake: current Alcohol intake frequency: does not drink Patient Tobacco Use Status: Former Tobacco user Tobacco use type: Cigarette e-Cigarette/Vaping Use: Never Used Second Hand Smoke Exposure: No service: No Current occupational status: disabled Cognitive needs: No Hearing needs: No Vision needs: No Questionnaire PHQ-9 Over the last 2 weeks, how often have you been bothered by any of the following problems? 1. Little interest or pleasure in doing things: not at all 2. Feeling down, depressed, or hopeless: not at all 3. Trouble falling or staying asleep, or sleeping too much: not at all 4. Feeling tired or having little energy: not at all 5. Poor appetite or overeating: not at all 6. Feeling bad about yourself - or that you are a failure or have let yourself or your family down: not at all 7. Trouble concentrating on things, such as reading the newspaper or watching television: not at all 8. Moving or speaking so slowly that other people could have noticed. Or the opposite - being so fidgety or restless that you have been moving around a lot more than usual: not at all 9. Thoughts that you would be better off or of hurting yourself in some way: not at all Total score: 0 Depression Screening Interpretation: Negative Depression Screening Done: Yes Source: Developed by Drs. Carlos Pelaez, Martha Tidwell, Kavon Mcmahon and colleagues, with an educational britney from [employer]. Thrive Questionnaire Date Thrive assessed: 04/18/24 I am a: Patient What is your living situation today?: I have a steady place to live Within the past 12 months, did the food you bought not last and you didn't have the money to get more?: Never true Within the past 12 months, did you worry whether your food would run out before you got money to buy more?: Never true Do you have trouble paying for medicines?: No Do you have trouble getting transportation to medical appointments?: No Do you have trouble paying your heating and electricity bill?: No Do you have trouble taking care of your child, family member or friend?: No Do you have trouble with day-to-day activities such as bathing, preparing meals, shopping, managing finances, etc.?: No Are you currently unemployed and looking for a job?: No Are you interested in more education?: No Please select the resources that you would like help with: None Currently or been in a relationship where the following occur: No concerns reported THRIVE Score: 0 AUDIT C Alcohol Use Questionnaire (AUDIT-C) 1. How often do you have a drink containing alcohol?: Never Total Score: 0 Score Reviewed/Action Taken: No NATALIIA-7 AMB Questionnaire NATALIIA-7 Date NATALIIA - 7 assessed: 04/18/24 Feeling nervous, anxious, or on edge: 0 = Not at all Not being able to stop or control worryin = Not at all Worrying too much about different things: 0 = Not at all Trouble relaxin = Not at all Being so restless that it is hard to sit still: 0 = Not at all Becoming easily annoyed or irritable: 0 = Not at all Feeling afraid as if something awful might happen: 0 = Not at all Total NATALIIA-7 score (0-4 normal; 5-9 mild; 10-14 moderate; 15-21 severe): 0 Source: Developed by Drs. Carlos Pelaez, Martha Tidwell, Kavon Mcmahon and colleagues, with an educational britney from [employer]. Physical exam (Primary Care) Vital Signs: Last Vital Signs Pulse 89 04/18/24 09:39 BP 100/76 04/18/24 09:39 Pulse Ox 96 04/18/24 09:39 Oxygen Delivery Method Room Air 04/18/24 09:39 BMI result Body Mass Index 25.3 Tobacco/Smoking Status: Tobacco use Status Tobacco use date assessed 04/18/24 04/18/24 09:44 Patient Tobacco Use Status Former Tobacco user 04/18/24 09:44 Tobacco use type Cigarette 04/18/24 09:44 e-Cigarette/Vaping Use Never Used 04/18/24 09:44 PHQ-9: PHQ-9 Score PHQ-9: Total score 0 04/18/24 09:44 Depression Screening Interpretation: Negative Thrive Assessment: Date of Thrive Assessment Date Thrive assessed 04/18/24 04/18/24 09:44 Currently or been in a relationship where the following occur: No concerns reported Coding Level of Care Code Est Pt Level 4 (63459) Complex EM visit Add On G2211 Diagnoses Follow-up exam, 3-6 months since previous exam Z09 Elevated PSA R97.20 Colon polyp K63.5 Tobacco use disorder F17.200 GERD (gastroesophageal reflux disease) K21.9 Generalized anxiety disorder F41.1 Osteoarthritis M19.90 Major depression in partial remission F32.4 Tinea cruris B35.6 HTN (hypertension) I10 Hyperlipidemia E78.5 Assessment & Plan Assessment & Plan (1) Follow-up exam, 3-6 months since previous exam: Code(s): Z09 - Encounter for follow-up examination after completed treatment for conditions other than malignant neoplasm Category: Medical Plan: Patient here for 3-6 month follow-up. Chronic conditions are stable. See below for plans. (2) Elevated PSA: Code(s): R97.20 - Elevated prostate specific antigen [PSA] Category: Medical Plan: Patient has BPH currently being followed by Dr. Granger urologist currently on finasteride and terazosin taking as prescribed. Condition is stable will continue to monitor. (3) Colon polyp: Code(s): K63.5 - Polyp of colon Category: Medical Plan: Patient had colonoscopy on 06/02/2022 which revealed 10 mm polyp otherwise no other abnormalities. Patient is scheduled for repeat colonoscopy in 2025. Will continue to monitor. (4) Tobacco use disorder: Code(s): F17.200 - Nicotine dependence, unspecified, uncomplicated Category: Medical Plan: Discussed smoking cessation. Stable. Will continue to monitor. (5) GERD (gastroesophageal reflux disease): Code(s): K21.9 - Gastro-esophageal reflux disease without esophagitis Category: Medical Plan: Patient currently on omeprazole and pantoprazole. Condition is stable will continue to monitor. (6) Generalized anxiety disorder: Code(s): F41.1 - Generalized anxiety disorder Category: Medical Plan: Condition is stable patient currently on hydroxyzine and citalopram taking as prescribed. Will continue to monitor. (7) Osteoarthritis: Code(s): M19.90 - Unspecified osteoarthritis, unspecified site Category: Medical Plan: Patient currently on Flexeril, tramadol taking as prescribed and reports symptomatic relief with these medications (8) Major depression in partial remission: Code(s): F32.4 - Major depressive disorder, single episode, in partial remission Category: Medical Plan: Patient currently on hydroxyzine and citalopram taking as prescribed condition is stable (9) Tinea cruris: Code(s): B35.6 - Tinea cruris Category: Medical Plan: Will continue Clotimazole. Condition is stable. (10) HTN (hypertension): Code(s): I10 - Essential (primary) hypertension Category: Medical Plan: Blood pressure is stable. No evidence of high blood pressure at this time. Patient is not on any antihypertensive medication. Will continue to monitor. (11) Hyperlipidemia: Code(s): E78.5 - Hyperlipidemia, unspecified Category: Medical Plan: Patient cholesterol/LDL has been within normal range last LDL was 122 in 05/04/2022. Patient has not been on any statins. Patient will have fasting labs will monitor patient's lipid panel to evaluate for possible hyperlipidemia. Plan Plan - Continue management of asthma with refills for albuterol inhaler. - Tramadol refills for chronic back pain; continue use as needed for pain relief. - Continue current GERD treatment with omeprazole and pantoprazole. - Vitamin D supplementation to continue. - Proceed with scheduled colonoscopy in 2025 for polyp follow-up. - Order fasting blood work including CBC, CMP, lipid profile, A1c, vitamin D, and magnesium assessments. - Follow up with Dr. Granger for benign prostatic hyperplasia. - Continue anxiety management with hydroxyzine. Orders: Orders Comprehensive [place]. Panel Fast Today R97.20 - Elevated prostate specific antigen [PSA], Z09 - Encounter for follow-up examination after completed treatment for conditions other than malignant neoplasm Liver Panel Today Z09 - Encounter for follow-up examination after completed treatment for conditions other than malignant neoplasm Complete Blood Count Auto Diff Today Z09 - Encounter for follow-up examination after completed treatment for conditions other than malignant neoplasm Hemoglobin A1c Today Z09 - Encounter for follow-up examination after completed treatment for conditions other than malignant neoplasm Lipid Panel Today Z09 - Encounter for follow-up examination after completed treatment for conditions other than malignant neoplasm Vitamin D 25-OH Total Today Z09 - Encounter for follow-up examination after completed treatment for conditions other than malignant neoplasm TSH reflex Free T4 Today Z09 - Encounter for follow-up examination after completed treatment for conditions other than malignant neoplasm Magnesium Today Z09 - Encounter for follow-up examination after completed treatment for conditions other than malignant neoplasm PSA,Total (Free>4and<10) Today R97.20 - Elevated prostate specific antigen [PSA], Z09 - Encounter for follow-up examination after completed treatment for conditions other than malignant neoplasm Vitamin B12 and Folate Today Z09 - Encounter for follow-up examination after completed treatment for conditions other than malignant neoplasm Medications: Refilled albuterol sulfate 90 mcg/actuation (Ventolin HFA) 2 puffs PO Q4H 18 ea 1RF clotrimazole 1% 1 appl topical BID 4 weeks 45 grams 0RF tramadol 50 mg PO DAILY 30 tabs 4RF Discontinued cyclobenzaprine Discontinued Reason: Doctor's Order 10 mg PO BEDTIME 10 tabs 0RF G89.29 - Other chronic pain, M54.50 - Low back pain, unspecified Patient Instructions: Patient Instructions - Continue using albuterol inhaler as needed for asthma. - Take tramadol only when experiencing significant back pain. - Persist with prescribed GERD medications. - Maintain current vitamin D dosage. - Abstain from eating or drinking anything other than water before the scheduled lab work. - Keep the follow-up appointment with Dr. Granger for prostate evaluation. - Plan to obtain blood tests today as ordered. - Return for follow-up in three months or sooner if new symptoms arise. Scribe Plan - Not visible on output: History of Present Illness The patient is a 54-year-old male presenting for 6 month follow up to discuss his chronic condition management. The patient manages asthma with an albuterol inhaler as needed and has required refills for his inhaler. He experiences chronic back pain, which requires the use of tramadol on an as-needed basis for pain management. Muscle spasms are managed with Flexeril. The patient's anxiety disorder is managed with hydroxyzine and citalopram. He also has GERD, for which he is on omeprazole and pantoprazole. There is a noted history of benign prostatic hyperplasia, he is currently on terazosin and finasteride and is scheduled to follow up with Dr. Granger the urologist. The patient reported no recent changes in his condition since his previous evaluations. No high blood pressure history, and prior cholesterol levels have been stable. Muscle spasms are managed with Flexeril. The patient maintains his vitamin D levels with current supplementation. There was a previous colonoscopy in 2022 where a 10 mm polyp was found, with a follow-up colonoscopy scheduled in 2025. The patient expresses concern about his history of elevated cholesterol, though it has been stable since relocating from [place]. Patient requesting blood work today and is requesting lipid panel for his cholesterol. Patient reports he lives home alone. He is still currently driving. No difficulties driving at nighttime or any blurry vision. He is not interested in a flu vaccine at this time. he is managing his finances and bills on his own okay. He has a [employer] who works 17 hours for him and helps with his groceries and like cleaning. He reports he is able to bathe himself. He does not use any cane walker or wheelchair. He denies any recent falls. He denies any other symptoms complaints or concerns at this time. Social History - Lives alone in an apartment. - Receives approximately 17 hours of [employer] services weekly for tasks including cleaning, grocery shopping, and laundry assistance; manages personal bathing. - Walks with a cane but expresses ability to manage stairs with back pain being a limiting factor rather than shortness of breath. - Drives independently, with no visual disturbances noted at night. - Blood pressure reported stable with no previous medication use for hypertension. Review of Systems - Neurological: Denies shortness of breath and chest pain. - Musculoskeletal: Reports need to stop during walking due to back pain. Physical Exam Appearance: Alert. Oriented X3. No acute distress. Head: Normal external exam. Normocephalic. Atraumatic. Eyes: Pupils are equal, round, and reactive to light. Extraocular movements intact. Conjunctiva and sclera normal. Eyelids normal. Ears: External auditory canal normal. Tympanic membranes normal. Throat: Pharynx normal. Uvula midline. Moist mucous membranes. Neck: Normal inspection. Neck supple. Full range of motion. No adenopathy. Thyroid Normal. No meningeal signs. No neck mass noted. Cardiovascular: Normal heart rate and rhythm. Heart sound normal. No murmurs noted. Pulses normal throughout. Respiratory: No respiratory distress. Painless inspiration. Breath sounds normal. No wheezes/rales/rhonchi noted. Chest nontender. No accessory muscle usage noted or decreased air movement noted. Abdomen: Soft and nontender. No distention noted. No organomegaly noted. Back: No costovertebral angle tenderness. Full range of motion noted. Reports back pain, which causes the need to stop when walking. Skin: Skin warm and dry. Normal skin color. Normal skin turgor. No rashes/lesions/lacerations noted. Extremities: No lower extremity edema. Extremities exhibit normal range of motion. Extremities nontender. Neuro: Oriented X 3. No motor deficit. No sensory deficit. Reflexes normal. Uses a cane for walking. Results - Labs: Recent urine analysis in March was normal. Patient was informed and verbally consented to the use of an ambient scribe for clinic note documentation during this visit. Discussion Notes I discussed the management of the patient's chronic conditions and the continuation of his current medication regimen, given his stable status. We deliberated on the importance of fasting for upcoming laboratory tests to ensure comprehensive evaluation of his overall health and cholesterol levels. The patient agreed to continue his current medication for GERD and requested refills, which I initiated. We reviewed his current symptoms and confirmed there were no new neurological or cardiovascular issues. There was a focus on ensuring proper follow-up for his benign prostatic hyperplasia scheduled with Dr. Granger, and I emphasized the significance of surveillance colonoscopy given his history. The patient is to follow up in three months for re-evaluation.
== END 2024-04-18 10:13 | disposition home or self-care (01) ==
PROVIDERS: PCP Internal Medicine; Visit Provider Internal Medicine
DX: K21.9 Gastro-esophageal reflux disease without esophagitis (principal); Z09 Encounter for follow-up examination after completed treatment for conditions other than malignant neoplasm; F32.4 Major depressive disorder, single episode, in partial remission; R97.20 Elevated prostate specific antigen [PSA]; K63.5 Polyp of colon; F17.200 Nicotine dependence, unspecified, uncomplicated; F41.1 Generalized anxiety disorder; M19.90 Unspecified osteoarthritis, unspecified site; B35.6 Tinea cruris; I10 Essential (primary) hypertension; E78.5 Hyperlipidemia, unspecified

== ENCOUNTER 2024-07-25 09:16 | Outpatient (AMB) | payer OTHER, SELFPAY ==
--- NOTE | 2024-07-25 09:32 | MHC.PC.OV ---
Vital Signs 07/25/24 09:33 Height 5 ft 5 in Weight 154 lb 2 oz BMI 25.6 BP 106/64 Blood Pressure Location Lt brachial Position Sitting Pulse 95 Pulse Source Pulse Oximeter Temp 97.3 F Temp Source Temporal Artery Scan Pulse Oximetry (%) 95 Oxygen Delivery Method Room Air Intake Visit Reasons: 3mth f/u Intake Note: Patient is here to follow up on HLD, HTN, Polyarthralgia. Landmen Required: No Senior Data Mining Analyst: Not Required per policy Accompanied by: Self / Same As Patient Allergies aspirin [ASPIRIN] Allergy (Intermediate, Verified 07/25/24 10:27) Facial Swelling/Hives/flushing pantoprazole Allergy (Intermediate, Verified 07/25/24 10:27) Nausea Penicillins [PENICILLINS] Allergy (Intermediate, Verified 07/25/24 10:27) syncope sulfamethoxazole [From Bactrim] Allergy (Intermediate, Verified 07/25/24 10:27) Swelling trimethoprim [From Bactrim] Allergy (Intermediate, Verified 07/25/24 10:27) Swelling Medication List - Last Reconciled 07/25/24 by Marcelo Chavarria MD albuterol sulfate 90 mcg/actuation (Ventolin HFA) 2 puffs PO Q4H atorvastatin 10 mg PO BEDTIME cane As directed cholecalciferol (vitamin D3) (Vitamin D3) 25 mcg PO DAILY clotrimazole 1% 1 appl topical BID cyclobenzaprine 10 mg PO BEDTIME escitalopram oxalate 20 mg PO DAILY finasteride 5 mg PO DAILY 90 days hydroxyzine HCl 50 mg PO TID lidocaine HCl-hydrocortison ac 3-0.5 % 1 appl IN BEDTIME mirtazapine 15 mg PO BEDTIME [non slip mat As directed] omeprazole 20 mg PO BID pantoprazole 40 mg PO DAILY phenazopyridine (Pyridium) 200 mg PO TID 3 days [Plastic urinal As directed] Shower Chair As directed terazosin 5 mg PO BEDTIME 90 days tramadol 50 mg PO DAILY Tobacco use date assessed: 07/25/24 Dental Screening Dental Screen Date: 04/18/24 [facility] Medical History Pulmonary nodule Former cigarette smoker Hemorrhoid CAD (coronary artery disease) Erectile dysfunction BPH (benign prostatic hyperplasia) Myocardial infarct, old Hyperlipidemia HTN (hypertension) Dyspnea Abdominal aortic aneurysm (AAA) Insomnia Tobacco use disorder GERD (gastroesophageal reflux disease) Generalized anxiety disorder Surgical History Hx of colonoscopy (~05/18/22) History of cholecystectomy History of appendectomy Family History Mother Cancer Father Prostate cancer Heart defect Other Mental health disorder Social History Household Members: None Housing: Apartment Alcohol intake: current Alcohol intake frequency: does not drink Patient Tobacco Use Status: Former Tobacco user Tobacco use type: Cigarette e-Cigarette/Vaping Use: Never Used Second Hand Smoke Exposure: No service: No Current occupational status: disabled Cognitive needs: No Hearing needs: No Vision needs: No Questionnaire PHQ-9 Over the last 2 weeks, how often have you been bothered by any of the following problems? Depression Screening Interpretation: Negative Depression Screening Done: Yes Source: Developed by Drs. Carlos Pelaez, Kavon Velazquez and colleagues, with an educational britney from [employer]. Thrive Questionnaire Date Thrive assessed: 04/18/24 Currently or been in a relationship where the following occur: No concerns reported THRIVE Score: 0 NATALIIA-7 AMB Questionnaire NATALIIA-7 Date NATALIIA - 7 assessed: 04/18/24 Source: Developed by Drs. Carlos Pelaez, Kavon Velazquez and colleagues, with an educational britney from [employer]. Physical exam (Primary Care) Vital Signs: Last Vital Signs Temp 97.3 F 07/25/24 09:33 Pulse 95 07/25/24 09:33 BP 106/64 07/25/24 09:33 Pulse Ox 95 07/25/24 09:33 Oxygen Delivery Method Room Air 07/25/24 09:33 Care Plan Goal for BP management: Blood pressure is in range. BMI result Body Mass Index 25.6 Tobacco/Smoking Status: Tobacco use Status Tobacco use date assessed 07/25/24 07/25/24 09:58 Patient Tobacco Use Status Former Tobacco user 07/25/24 09:58 Tobacco use type Cigarette 07/25/24 09:58 e-Cigarette/Vaping Use Never Used 07/25/24 09:58 Depression Screening Interpretation: Negative Thrive Assessment: Date of Thrive Assessment Date Thrive assessed 04/18/24 07/25/24 09:58 Currently or been in a relationship where the following occur: No concerns reported Advance Care Planning discussion: Exists, not on file Date of discussion: 07/25/24 Forms completed: Health Care Proxy Time spent: 1-15 minutes, not on file Actual minutes spent: 5 Coding Level of Care Code Est Pt Level 4 (43941) Complex EM visit Add On G2211 Diagnoses Generalized anxiety disorder F41.1 Abdominal aortic aneurysm (AAA) I71.40 Additional Codes Vital Signs *Quality* - Advance Care Planning discussion: Exists, not on file ([id number]) Vital Signs *Quality* - Time spent: 1-15 minutes, not on file ([id number]) Assessment & Plan Assessment & Plan (1) Generalized anxiety disorder: Code(s): F41.1 - Generalized anxiety disorder Category: Medical Plan: Condition is stable. Continue medications at same dosage. (2) Abdominal aortic aneurysm (AAA): Code(s): I71.40 - Abdominal aortic aneurysm, without rupture, unspecified Category: Medical Plan: Condition is stable. Plan History of Present Illness The patient is a 54-year-old male presenting with a wellness assessment and discussion of chronic conditions. He describes persistent arm discomfort, exacerbated by movement, lasting several years. Past orthopedic care reportedly aggravated the problem, leading to a rheumatology referral, where arthritis was diagnosed. Current management includes muscle relaxers and occasional tramadol. The patient also suffers chronic back and knee pain, symptoms he has adapted to over four years. In gastrointestinal history, the patient had polyps detected in a 2019 colonoscopy, with a follow-up scheduled for 2025. He denies current abdominal symptoms. Social History - Reports walking as part of his daily activities - Describes adaptation to chronic pain over several years Review of Systems - Musculoskeletal: Reports arm discomfort with movement; reports chronic back and knee pain - Gastrointestinal: Denies current abdominal pain; confirms history of colonic polyps Physical Exam General: Cooperative and healthy appearing Nutritional Appearance: Well nourished Orientation/consciousness: Patient oriented x3 Limitations: No limitations Head: Normal to inspection General: Appearance normal, both eyes and all related structures Neck: Normal visual inspection Chest: Normal palpation of entire chest wall Respiratory: N ormal respiratory effort Neurology: Patient oriented x3, no problems walking or doing work. Results Plan The patient continues with muscle relaxants and tramadol for chronic arthritis, back pain, and knee pain relief. Follow-up with a cumulative effects analyst remains crucial, given the arthritis diagnosis. For his polyp history, a scheduled colonoscopy in 2025 will monitor polyp status. The existing treatment plan adequately manages his symptoms, and no alterations were made today. Patient was informed and verbally consented to the use of an ambient scribe for clinic note documentation during this visit. Discussion Notes I reviewed the patient's history of arthritis and chronic pain, emphasizing current management effectiveness and continuation. We discussed the importance of the upcoming colonoscopy in 2025 to monitor colonic polyps. No changes were made to his medication regimen, which includes muscle relaxants and tramadol. We reviewed follow-up plans, ensuring the patient understands the importance of compliance with scheduled evaluations and ongoing symptom monitoring. Patient Instructions - Continue taking prescribed muscle relaxants and tramadol as needed - Maintain scheduled follow-up appointments with the cumulative effects analyst - Awareness of the scheduled colonoscopy in 2025 for polyp surveillance - Monitor symptoms and report any significant changes or worsening - Continue daily activities as tolerable, seeking medical advice if pain escalates
[2024-07-25 09:33] VITALS: BP 106/64; PULSE 95; TEMP 36.3; O2SAT 95; BMI 25.6
--- OUTSIDE RECORDS SUMMARY | 2024-07-25 10:03 | XMS_ITS | Clinical Summary ---
Author Organization [facility] Address [address] [place] [address] Care Team Providers Care Cube Machine Tender Name Role Phone Unavailable Primary Care Provider Unavailabl e Social History Tobacco Use Types Packs/Day Years Used Date Smoking Tobacco: Never Assessed Sex and Gender Information Value Date Recorded Sex Assigned at Not on file Legal Sex Male 5:05 AM EST Gender Identity Not on file Sexual Orientation Not on file Plan of Treatment Health Maintenance Due Date Last Done Comments DTaP,Tdap,and Td Vaccines (1 - Tdap) 1990 Hepatitis B Vaccines (1 of 3 - 19+ 3-dose series) 1990 Pneumococcal Vaccine: 50+ Years (1 of 1 - PCV) 2021 Zoster Vaccines (1 of 2) 2021 Cholesterol Screening (Lipid Panel) 03/20/2022 Colorectal Cancer Screening: Colonoscopy 03/20/2022 Depression Screening 03/20/2022 HIV Screening 03/20/2022 Hepatitis C Screening 03/20/2022 Social Influencers of Health Screening 03/20/2022 COVID-19 Vaccine (3 - 2023-2 5 season) 2023 06/25/2020, 06/04/2020 Influenza Vaccine (Season Ended) 2024 HIB Vaccines Aged Out No longer eligi ble based on patient's age to complete this topic HPV Vaccines Aged Out No longer eligi ble based on patient's age to complete this topic Hepatitis A Vaccines Aged Out No long er eligible based on patient's age to complete this topic IPV Vaccines Aged Out No longer eligi ble based on patient's age to complete this topic MMR Vaccines Aged Out No longer eligi ble based on patient's age to complete this topic Meningococcal ACWY Vaccine Aged Out N o longer eligible based on patient's age to complete this topic Meningococcal B Vaccine Aged Out No l onger eligible based on patient's age to complete this topic Pneumococcal Vaccine: Pediatrics (0 to 5 Years) and At-Risk Patients (6 to 64 Years) Aged Out No longer eligible b ased on patient's age to complete this topic RSV Immunization Patients Under 20 months Aged Out No longer eligible b ased on patient's age to complete this topic Varicella Vaccines Aged Out No longer eligible based on patient's age to complete this topic
== END 2024-07-25 10:25 | disposition home or self-care (01) ==
LOC: HO.HMCH 09:16
PROVIDERS: PCP Internal Medicine; Visit Provider Internal Medicine
DX: F41.1 Generalized anxiety disorder (principal); I71.40 Abdominal aortic aneurysm, without rupture, unspecified; Z00.00 Encounter for general adult medical examination without abnormal findings

== ENCOUNTER → 2024-07-25 09:16 | Outpatient (BNVA) | payer OTHER, SELFPAY | PROVIDERS: PCP Internal Medicine; Visit Provider Internal Medicine | DX: N32.0 Bladder-neck obstruction (principal); R35.1 Nocturia; R39.15 Urgency of urination; R97.20 Elevated prostate specific antigen [PSA]; F41.1 Generalized anxiety disorder; I71.40 Abdominal aortic aneurysm, without rupture, unspecified | CPT/HCPCS: 99212 ==

== ENCOUNTER 2024-07-25 11:37 | Outpatient (AMB) | payer OTHER, SELFPAY ==
--- NOTE | 2024-07-25 11:58 | A.OFFVIS_ITS ---
Intake Visit Reasons: 1y/PSA/PVR Intake Note: Patient presents today for a 1Y follow up on: PSA/PVR Meds- Finasteride, Terazosin Allergies to Antibiotic- Penicillins Blood Thinner- None Manager Immunology Required: Yes Allergies aspirin [ASPIRIN] Allergy (Intermediate, Verified 07/25/24 12:00) Facial Swelling/Hives/flushing pantoprazole Allergy (Intermediate, Verified 07/25/24 12:00) Nausea Penicillins [PENICILLINS] Allergy (Intermediate, Verified 07/25/24 12:00) syncope sulfamethoxazole [From Bactrim] Allergy (Intermediate, Verified 07/25/24 12:00) Swelling trimethoprim [From Bactrim] Allergy (Intermediate, Verified 07/25/24 12:00) Swelling HPI Comments Details: Rigoberto is a pleasant male. He is a patient of Dr. Al. He is seen for the following urologic conditions - lower urinary tract symptoms Yearly follow-up PSA remains at appropriate level - 1.5 Remains on combination therapy Could reduce finasteride to Monday, Monday, Monday Lower urinary tract symptoms Progressive and longstanding Urinary urgency and frequency with occasional accident, Weak stream, Hesitancy, Nocturia times 3-4 Current medication finasteride and terazosin 5 mg Family history prostate issues Prior medication tamsulosin Cystoscopy 03/07 wide prostate Does have dietary triggers such as coffee and spicy food PSA 06/07 2.4, 01/06 1.9, 04/07 4.5, 02/06 1.1, 08/08 1.4 SABINE 3+ prostate normal Therapeutic plan -continue current meds [facility] Medical History Pulmonary nodule Former cigarette smoker Hemorrhoid CAD (coronary artery disease) Erectile dysfunction BPH (benign prostatic hyperplasia) Myocardial infarct, old Hyperlipidemia HTN (hypertension) Dyspnea Abdominal aortic aneurysm (AAA) Insomnia Tobacco use disorder GERD (gastroesophageal reflux disease) Generalized anxiety disorder Surgical History (Updated 07/30/24 @ 10:41 by Jayda Molina) Hx of colonoscopy (~05/18/22) History of cholecystectomy History of appendectomy Family History Mother Cancer Father Prostate cancer Heart defect Other Mental health disorder Social History Household Members: None Housing: Apartment Alcohol intake: current Alcohol intake frequency: does not drink Patient Tobacco Use Status: Former Tobacco user Tobacco use type: Cigarette e-Cigarette/Vaping Use: Never Used Second Hand Smoke Exposure: No service: No Current occupational status: disabled Cognitive needs: No Hearing needs: No Vision needs: No Review of Systems Const Denies chills and Denies fever(s) Card Reports no additional complaints and Denies syncope Resp Denies cough GI Denies abdominal pain and Denies heartburn Reports as per HPI and Denies change in libido Neuro Denies syncope Psych Denies change in libido Endo Denies change in libido Physical Exam Const General: cooperative, healthy appearing, comfortable and no acute distress Orientation/consciousness: patient oriented x3 HEENT Face and sinus: Yes normal facial exam Mouth: moist mucous membranes Neck Neck: Yes normal visual inspection, Yes full ROM and Yes trachea midline Chest Chest palpation & inspection: normal inspection of the chest Resp Effort & Inspection: normal respiratory effort, able to speak in complete sentences and no respiratory distress GI Inspection: Yes normal to inspection Rectal Exam - Male: Yes normal sphincter tone and Yes prostate normal Male General Exam: Yes normal external exam Penis: normal penis and circumcised Meatus: meatus normal Scrotum: scrotum normal Testes: Testes normal Back/Spine/Pelvis Cervical Spine: normal cervical lordosis Thoracic/Lumbar Spine: thoracic and lumbar spine normal to inspection Skin General skin exam: no rashes or lesions noted Neuro General: patient oriented x3, gait normal, tone normal and moves all extremities Extrem General: Yes normal to inspection and Yes capillary refill normal Assessment & Plan Assessment & Plan (1) Bladder outlet obstruction: Code(s): N32.0 - Bladder-neck obstruction Category: Medical (2) Nocturia more than twice per night: Code(s): R35.1 - Nocturia Category: Medical (3) Urinary urgency: Code(s): R39.15 - Urgency of urination Category: Medical (4) Elevated PSA: Code(s): R97.20 - Elevated prostate specific antigen [PSA] Category: Medical Plan Finasteride Monday, Monday, Monday Twelve month follow-up Orders: Orders Prostate Specific Antigen 12 Months R97.20 - Elevated prostate specific antigen [PSA] Patient Instructions: This note is constructed using voice recognition software. While every effort has been made to ensure accuracy fretted instrument inspector errors may have been included. Imaging studies, laboratory and physical exam results were discussed and reviewed in detail. No major barriers to patient understanding were identified. An opportunity to ask questions regarding the treatment plan was provided. All questions were answered. The patient expressed understanding and agreement with the above treatment plan. The patient is aware they should contact our office by phone for worsening of their current condition or the appearance of new urologic symptoms. Compliance is encouraged with any medications and followup testing that is ordered. It is a privilege to participate in the urologic care of your patient. If you have any questions or concerns regarding treatment for the above conditions, or other urologic issues, please do not hesitate to contact me. The office telephone contact is [phone]. Sincerely, Dr Francisco Granger MD, PAT [facility] - Urology Compassionate Specialist Care for the Genitourinary System Coding Level of Care Code Est Pt Level 4 (73518) Complex EM visit Add On G2211 Diagnoses Bladder outlet obstruction N32.0 Nocturia more than twice per night R35.1 Urinary urgency R39.15 Elevated PSA R97.20
--- OUTSIDE RECORDS SUMMARY | 2024-07-25 14:12 | XMS_ITS | Clinical Summary ---
Author Organization [facility] Address [address] [place] [address] Care Team Providers Care Land Leases And Rentals Manager Name Role Phone Unavailable Primary Care Provider [...]
== END 2024-07-25 12:26 | disposition home or self-care (01) ==
LOC: HO.HUSH 11:38
PROVIDERS: PCP Internal Medicine; Visit Provider Urology
DX: N32.0 Bladder-neck obstruction (principal); R35.1 Nocturia; R39.15 Urgency of urination; R97.20 Elevated prostate specific antigen [PSA]
CPT/HCPCS: 99214; G2211

== ENCOUNTER 2025-02-26 08:20 | Outpatient (AMB) | payer OTHER, SELFPAY ==
--- OUTSIDE RECORDS SUMMARY | 2025-02-26 08:29 | XMS_ITS | Clinical Summary ---
Author Organization [facility] Address [address] [place] [address] Care Team Providers Care Permit Technician Name Role Phone Unavailable Primary Care Provider Unavailabl e Social History Tobacco Use Types Packs/Day Years Used Date Smoking Tobacco: Never Assessed Sex and Gender Information Value Date Recorded Sex Assigned at Not on file Legal Sex Male 5:05 AM EST Gender Identity Not on file Sexual Orientation Not on file Plan of Treatment Health Maintenance Due Date Last Done Comments Colorectal Cancer Screening: Colonoscopy 1971 DTaP,Tdap,and Td Vaccines (1 - Tdap) 1990 Hepatitis B Vaccines (1 of 3 - 19+ 3-dose series) 1990 Pneumococcal Vaccine: 50+ Years (1 of 1 - PCV) 2021 Zoster Vaccines (1 of 2) 2021 Cholesterol Screening (Lipid Panel) 03/20/2022 HIV Screening 03/20/2022 Hepatitis C Screening 03/20/2022 Social Influencers of Health Screening 03/20/2022 Depression Screening 04/17/2024 COVID-19 Vaccine (3 - 2024-2 6 season) 2024 06/25/2020, 06/04/2020 Influenza Vaccine (#1) 2024 RSV Immunization Adult Patients (1 - 1-dose 75+ series) 2046 HIB Vaccines Aged Out No longer eligi [...]
--- OUTSIDE RECORDS SUMMARY | 2025-02-26 08:29 | XMS_ITS | Patient Health Record ---
Demographics Address [address] [facility] [address] [place] [address] Mobile Preferred Language en Marital Status Jewish Affiliation Unknown Race Ethnic Group or Author Organization [facility] Address [address] [place] [address] Care Team Providers Care Sprinkling System Installer Name Role Phone Barby Prakash DO Primary Care Provider Carlos Harrison Unavailable [phone] Allergies Allergen (clinical drug ingredient) Drug/Non Drug Allergy documented on EMR Reaction Allergy Type Onset Date Status Penicillin Unknown Drug Allergy Active aspirin Aspirin Unknown Drug Allergy Active Reason For Referral No Information Medications Medication SIG (Take, Route, Frequency, Duration) Notes Start Date End Date Status Escitalopram Oxalate 20 MG TAKE 1 TABLET BY MOUTH EVERY MORNING Orally Once a day Active ProAir HFA 108 (90 Base) MCG/ACT 2 puffs as needed Inhalation every 4 hrs/prn Active traZODone HCl 50 MG TAKE 1/2 - 1 TABLET BY MOUTH AT BEDTIME NEEDED Oral Once a day Active Omeprazole 20 MG TAKE 1 CAPSULE DAILY Oral Once a day Started 2014 Active Dicyclomine HCl 10 MG 1-2capsules Orally Four times a day prn bloating/abdominal cramps; Duration: 30 day(s) 05/14/2015 Active Immunizations Vaccine Route Administration Date Status Comme nts Flu vaccine no Preserv 3 and > Unknown 01/27/2015 Admin istered Problems Problem Type SNOMED Code ICD Code Onset Dates Problem Status W/U Status Risk Notes Problem Abdominal bloating (640184431) Abdominal bloating (R14.0) Active confirmed Problem Epigastric pain (73347817) Abdominal pain, epigastric (R10.13) Active confirmed Problem Gastroesophageal reflux disease without esophagitis (002172906) Gastroesophageal reflux disease without esophagitis (K21.9) Active confirmed Plan Of Treatment Future Test Test Name Order Date UPPER GI ENDOSCOPY 05/14/2015 Insurance Providers Payer Name Payer Address Payer Phone Subscriber Number Group Number Insured Name Patient Relationship to Insured Coverage Start Date Coverage End Date MED[employer] OF [employer] [address] [place] [address] [phone] [id number] SAE KRAMER Self - patient is the insured Medical (General) History Medical History History ICD Code Denies MO,DM,CVA,renal disease Asthma Depression/Insmonia Surgical History Surgery Date(Month/Year) appendectomy
--- NOTE | 2025-02-26 08:30 | MHC.PC.OV ---
Vital Signs 02/26/25 08:31 Height 5 ft 5 in Weight 158 lb 2 oz BMI 26.3 BP 100/68 Blood Pressure Location Lt brachial Position Sitting Pulse 79 Pulse Source Pulse Oximeter Temp 97.5 F Temp Source Temporal Artery Scan Pulse Oximetry (%) 97 Oxygen Delivery Method Room Air Intake Visit Reasons: 6 month f/u Intake Note: Patient is here to follow up on HTN, HLD, Polyarthralgia. 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 Accompanied by: Self / Same As Patient Allergies aspirin (ASPIRIN) Allergy (Intermediate, Verified 02/26/25 08:31) Facial Swelling/Hives/flushing pantoprazole Allergy (Intermediate, Verified 02/26/25 08:31) Nausea Penicillins (PENICILLINS) Allergy (Intermediate, Verified 02/26/25 08:31) syncope sulfamethoxazole (From Bactrim) Allergy (Intermediate, Verified 02/26/25 08:31) Swelling trimethoprim (From Bactrim) Allergy (Intermediate, Verified 02/26/25 08:31) Swelling Tobacco use date assessed: 02/26/25 Dental Screening Dental Screen Date: 04/18/24 [facility] Medical History Pulmonary nodule Former cigarette smoker Hemorrhoid CAD (coronary artery disease) Erectile dysfunction BPH (benign prostatic hyperplasia) Myocardial infarct, old Hyperlipidemia HTN (hypertension) Dyspnea Abdominal aortic aneurysm (AAA) Insomnia Tobacco use disorder GERD (gastroesophageal reflux disease) Generalized anxiety disorder Surgical History Hx of colonoscopy (~05/18/22) History of cholecystectomy History of appendectomy Family History Mother Cancer Father Prostate cancer Heart defect Other Mental health disorder Social History Household Members: None Housing: Apartment Alcohol intake: current Alcohol intake frequency: does not drink Patient Tobacco Use Status: Former Tobacco user Tobacco use type: Cigarette e-Cigarette/Vaping Use: Never Used Second Hand Smoke Exposure: Yes service: No Current occupational status: disabled Cognitive needs: No Hearing needs: No Vision needs: No Questionnaire PHQ-9 Over the last 2 weeks, how often have you been bothered by any of the following problems? 1. Little interest or pleasure in doing things: several days 2. Feeling down, depressed, or hopeless: not at all 3. Trouble falling or staying asleep, or sleeping too much: not at all 4. Feeling tired or having little energy: not at all 5. Poor appetite or overeating: not at all 6. Feeling bad about yourself - or that you are a failure or have let yourself or your family down: not at all 7. Trouble concentrating on things, such as reading the newspaper or watching television: not at all 8. Moving or speaking so slowly that other people could have noticed. Or the opposite - being so fidgety or restless that you have been moving around a lot more than usual: several days 9. Thoughts that you would be better off or of hurting yourself in some way: not at all Total score: 2 Depression Screening Interpretation: Positive Depression Screening Done: Yes Source: Developed by Drs. Carlos Pelaez, Martha Tdiwell, Kavon Mcmahon and colleagues, with an educational britney from [employer]. Thrive Questionnaire Date Thrive assessed: 04/18/24 I am a: Patient What is your living situation today?: I choose not to answer this question Within the past 12 months, did the food you bought not last and you didn't have the money to get more?: I choose not to answer this question Within the past 12 months, did you worry whether your food would run out before you got money to buy more?: I choose not to answer this question Do you have trouble paying for medicines?: I choose not to answer this question Do you have trouble getting transportation to medical appointments?: I choose not to answer this question Do you have trouble paying your heating and electricity bill?: I choose not to answer this question Do you have trouble taking care of your child, family member or friend?: No Do you have trouble with day-to-day activities such as bathing, preparing meals, shopping, managing finances, etc.?: No Are you currently unemployed and looking for a job?: No Are you interested in more education?: No Please select the resources that you would like help with: Care for elder or disabled Currently or been in a relationship where the following occur: I choose not to answer THRIVE Score: 0 AUDIT C Alcohol Use Questionnaire (AUDIT-C) 1. How often do you have a drink containing alcohol?: Never Total Score: 0 NATALIIA-7 AMB Questionnaire NATALIIA-7 Date NATALIIA - 7 assessed: 04/18/24 Feeling nervous, anxious, or on edge: 1 = Several days Not being able to stop or control worryin = Not at all Worrying too much about different things: 0 = Not at all Trouble relaxin = Not at all Being so restless that it is hard to sit still: 0 = Not at all Becoming easily annoyed or irritable: 3 = Nearly every day Feeling afraid as if something awful might happen: 3 = Nearly every day Total NATALIIA-7 score (0-4 normal; 5-9 mild; 10-14 moderate; 15-21 severe): 7 Source: Developed by Drs. Carlos Pelaez, Martha Tidwell, Kavon Mcmahon and colleagues, with an educational britney from [employer]. Physical exam (Primary Care) Vital Signs: Last Vital Signs Temp 97.5 F 02/26/25 08:31 Pulse 79 02/26/25 08:31 BP 100/68 02/26/25 08:31 Pulse Ox 97 02/26/25 08:31 Oxygen Delivery Method Room Air 02/26/25 08:31 BMI result Body Mass Index 26.3 Tobacco/Smoking Status: Tobacco use Status Tobacco use date assessed 02/26/25 02/26/25 08:37 Patient Tobacco Use Status Former Tobacco user 02/26/25 08:37 Tobacco use type Cigarette 02/26/25 08:37 e-Cigarette/Vaping Use Never Used 02/26/25 08:37 PHQ-9: PHQ-9 Score PHQ-9: Total score 2 02/26/25 08:37 Depression Screening Interpretation: Positive Thrive Assessment: Date of Thrive Assessment Date Thrive assessed 04/18/24 02/26/25 08:37 Currently or been in a relationship where the following occur: I choose not to answer Coding Level of Care Code Est Pt Level 4 (84913) Complex EM visit Add On G2211 Diagnoses HTN (hypertension) I10 Assessment & Plan Assessment & Plan (1) HTN (hypertension): Code(s): I10 - Essential (primary) hypertension Category: Medical Plan: History of Present Illness - The patient is a 55-year-old male presenting with back pain and for medication refills. - He reports increased back pain and arthritis symptoms, which he associates with changes in the weather. - He last took tramadol over a month ago and now prefers to use Tylenol for pain management. - The patient has a known allergy to aspirin. - He is followed by a supervisor cell room, though his last visit was 2-3 years ago. - He takes medication for his prostate and also mentioned receiving a blue pill for his urine. - Regarding preventative care, the patient declined this year's influenza vaccine. - His next colonoscopy is scheduled for June 12, 2025. Social History Review of Systems - Musculoskeletal: Reports back pain and symptoms of arthritis. - Allergic/Immunologic: Reports an allergy to aspirin. - Integumentary: Uses a cream, suggestive of a skin condition. Physical Exam General: Cooperative and healthy appearing Nutritional Appearance: Well nourished Orientation/consciousness: Patient oriented x3 Limitations: No limitations Head: Normal to inspection General: Appearance normal, both eyes and all related structures Neck: Normal visual inspection Chest: Normal palpation of entire chest wall Respiratory: Normal respiratory effort Neurology: Patient oriented x3 Results Plan - The patient will continue to use Tylenol (acetaminophen) for pain management as he prefers it over tramadol. - A refill for clotrimazole cream will be sent to the pharmacy. - A prescription for tramadol will not be provided, per the patient's request. - Blood work has been ordered. - The patient declined the influenza vaccine. - The patient is to follow up in six months. Discussion Notes I discussed the patient's back pain and his preference for pain management. We agreed that he would use Tylenol as needed, and I confirmed that I would not be refilling his tramadol prescription at his request. I informed him that I would send a refill for his clotrimazole cream and have ordered blood work for him to complete. The patient declined the flu shot today. I advised him to follow up in six months for reassessment. Patient Instructions - You can continue to take Tylenol for your back pain. - The prescription for your skin cream has been refilled. - Please go to the laboratory to have your blood work done. - Remember your next colonoscopy is scheduled for May 2025. - Please schedule a follow-up appointment in six months. Orders: Orders Complete Blood Count no Diff 02/26/25 I10 - Essential (primary) hypertension Liver Panel 02/26/25 I10 - Essential (primary) hypertension Thyroid Stimulating Hormone 02/26/25 I10 - Essential (primary) hypertension UA and rflx microscopic 02/26/25 I10 - Essential (primary) hypertension Basic Metabolic Panel 02/26/25 I10 - Essential (primary) hypertension Lipid Panel 02/26/25 I10 - Essential (primary) hypertension Medications: Refilled clotrimazole 1% 1 appl topical BID 15 grams 3RF albuterol sulfate 90 mcg/actuation (Ventolin HFA) 2 puffs PO Q4H 18 ea 1RF lidocaine HCl-hydrocortison ac 3-0.5 % 1 appl OK BEDTIME 7 grams 0RF tramadol 50 mg PO DAILY 30 tabs 4RF
[2025-02-26 08:31] VITALS: BP 100/68; PULSE 79; TEMP 36.4; O2SAT 97; BMI 26.3
== END 2025-02-26 08:51 | disposition home or self-care (01) ==
LOC: HO.HMCH 08:21
PROVIDERS: PCP Internal Medicine; Visit Provider Internal Medicine
DX: I10 Essential (primary) hypertension (principal)

== ENCOUNTER → 2025-02-26 08:20 | Outpatient (BNVA) | payer OTHER, SELFPAY | PROVIDERS: PCP Internal Medicine; Visit Provider Internal Medicine | DX: I10 Essential (primary) hypertension (principal) | CPT/HCPCS: 96127; 99212 ==